=== PATIENT | female | born 2000 | race Caucasian/White ===

== ENCOUNTER 2022-09-03 16:26 | Emergency (ER) | payer OTHER, SELFPAY ==
--- NOTE | 2022-09-03 16:30 | ED.NURSE ---
Patient in exam room made safe with alterations and camera monitor for saftey.
[2022-09-03 16:33] VITALS: BP 131/87; PULSE 78; RESP 18; TEMP 36.6; O2SAT 97; BMI 27.4
--- NOTE | 2022-09-03 16:38 | ED.GENADULT ---
HPI - General Adult General Time Seen by Provider: 16:38 Date Seen: 09/03/22 Chief complaint: Psychiatric Problem/Disorder Stated complaint: Mental Health,OCD,Stress Time Seen by Provider: 09/03/22 16:33 Source: patient and RN notes reviewed Mode of arrival: ambulatory Limitations: no limitations History of Present Illness HPI narrative: Karmen is a 22-year-old female that is initially loudly crying somewhat yelling before I come in the room to her. She does quiet down and has initially nice conversation with me. She has just been feeling extremely stressed. She was supposed to be in a scat or play at school. It was causing her so much stress that she felt like she wanted to harm herself to get out of this play. She wanted cause physical harm so she would have a reason to not do the play. She does not want to kill herself, she is not suicidal not homicidal. She denies any auditory or visual hallucinations. Her parents were supposed to watch this play via live stream and that was 1 of the stressors. She was also stressed about not following through with the play for the people she was in it with. This all just culminated an undue stress for her. She does have underlying anxiety depression, no prior suicide attempts. Does not sound like there hospitalizations before. She believe she has probable OCD as she has obsessions and compulsions. One of the things she talks about is having to check her phone all the time. 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 She states she moved around a lot as her dad was in the . She hit herself in her right jasso with a rock trying to harm herself. She did this last night. She has some bruising to the leg but states there is no pain with walking. Again, she has no plan for suicide. She denies any illness, has not been sick. Denies any alcohol use, no drug use, no smoking, no chance for . Related Data Previous Rx's Medication Instructions Recorded bupropion HCl 150 mg 24 hr tablet, 150 mg PO QAM #30 tabs 09/03/22 extended release (Wellbutrin XL) escitalopram oxalate 20 mg tablet 20 mg PO DAILY #30 tabs 09/03/22 (Lexapro) Allergies Allergy/AdvReac Type Severity Reaction Status Date / Time No Known Allergies Allergy Unknown Verified 08/07/22 16:37 Review of Systems Status of ROS: Reports: 10 or more systems reviewed and unremarkable except as noted in History and below [facility] Medical History (Updated 09/03/22 @ 21:59 by Danna Carrillo MD) Anxiety Depression Panic attack Surgical History (Updated 08/08/22 @ 10:57 by Martha Clement MD) No history of previous surgery Family History (Updated 08/08/22 @ 10:58 by Martha Clement MD) Maternal Grandfather Liver cancer Paternal Grandfather Pancreatic cancer Depression Uncle Stroke, Onset Age: 45 Social History (Updated 08/08/22 @ 10:59 by Martha Clement MD) Narrative: single, [employer], no kids does not drink alcohol exercises daily- walking, running non-smoker Smoking Status: Never smoker Do you use any of these nicotine containing products: None Second hand tobacco smoke exposure: No How often do you have a drink containing alcohol: never AUDIT-C Alcohol total score: 0 Non-prescribed substance use: denies use Exam Const: Vital Signs, click to edit/add: Vital Signs - 24 hr 09/03/22 16:33 Temperature 97.8 F Pulse Rate [Right Pulse Oximeter] 78 Respiratory Rate 18 Blood Pressure [Ri ght Upper Arm] 131/87 Pulse Oximetry 97 Oxygen Delivery Me thod Room Air Documenting provider has reviewed patient's vital signs: yes Common normals: average body habitus, oriented x3, no limitations, healthy appearing, alert and well nourished General appearance: cooperative, comfortable, well kempt, well developed and in distress (Initially anxious, crying. Is able to settle down and converse with me.) HENMT: Common normals: normocephalic, head/scalp atraumatic and hearing grossly normal bilaterally Head and scalp: normocephalic and atraumatic Eye: Common normals: PERRL, EOMs intact bilaterally, conjunctivae normal and no scleral icterus Conjunctiva: conjunctiva(e) normal Pupil: PERRL Neck & C-Spine: Common normals: full ROM, no lymphadenopathy, supple, no meningeal signs, no JVD and thyroid normal Thyroid: thyroid normal Resp: Common normals: normal respiratory effort, no retractions, no use of accessory muscles and clear to auscultation bilaterally Auscultation: clear to auscultation bilaterally Cardio: Common normals: no JVD, regular rate, regular rhythm, S1 normal heart sound, S2 normal heart sound, no gallops, no clicks and no murmurs Rate: regular rate Rhythm: regular rhythm Heart sounds: S1 normal and S2 normal Extremity: Other: Has some bruising anteriorly down the front of the left leg. Is able to bear weight, gait is normal. No open wounds. Neuro: Common normals: oriented x3 Sensorium/orientation: alert Meningeal signs: no meningeal signs Psych: Common normals: mental status grossly normal, thought process normal, cooperative, denies hallucinations, denies homicidal ideation and denies suicidal ideation Appearance: well kempt Thought process: normal thought process Other: Initially was distress, comes easily. Seems to have understanding into her behaviors, has insight into the fact that some of the obsessions and compulsions that she does are aberrant behavior for her. Course Course Hospital Course: We will employ telehealth services to ensure that we can come up with an appropriate outpatient plan for her. She understands if telehealth would feel that she would need hospitalization, will need to obtain COVID testing, laboratory evaluation and urine. This time it seems that there is significant stressors in her life. I do not have a sense that she will need hospitalization but sometimes telehealth does find out different information, will await their consultation. Reevaluation(s) Reevaluation #1: Touch base with patient, we still have not heard from telehealth. The reported time for her to be interviewed was around 7:30 p.m.. We did call as this time add past. All of their employ has had called in sick for the evening, they do have somebody coming on at 8:30 p.m.. Hopefully she will be 1st in the queue. She does not need anything at this time. Time: 20:01 Reevaluation #2: Felicia from telehealth did call back. She feels this patient is quite paranoid. Her level of paranoia was surprising, talking about fear of people watching her and it is happening every day. She reported to her her that she was not sleeping only eating 1 meal a day. She did not give suicidal intent but nonetheless Felicia was concerned about her mental health. She had not taken her medicines for a month. Mildly did not approach the patient about her concerns of the patient needing hospitalization. I went back and talked to Teresa regarding this. She became quite distressed and despondent. She states she needs to get back to her friends and her therapist at college. She really does not feel she needs hospitalization. We discussed that her mental health is at concern here. She notes that even last year when she was on the medicine she really did not feel her mental health was the best. I reviewed with her that that is all the more reason that she should consider hospitalization. IA am not notably getting that this patient is exhibiting significant paranoia on my discussions with her, she is not endorsing any suicidality or homicidality. Her intent was to try to get out of a play that was causing her significant distress as her parents may discover things. I did subsequently talk to the Josiah on-call at [employer]. He felt that it would be okay for her to return as long as she indeed was not suicidal. They do start finals this next week which would likely put another significantly or if stress onto the student. His request would be that she make an e-mail to her therapist to be seen on Monday, talk to her insurance coordinator as soon as possible as well. He is going to talk to her on the phone now and will let me know if there is anything concerning that comes from his conversation, otherwise, he is comfortable with her coming back to the campus. I did speak with him after he had talked to the patient, talked to the patient as well after her phone call with the josiah on-call. They will make sure that the mental health center/[facility] are aware and get her into her therapist/counselor on Monday. The Josiah's will be checking in on her. Teresa is adamant that she has never been able to conception Zina plan for suicide and does not feel suicidal. She will get a prescription for her medications for 1 month, but she still needs to follow up to get these medicines refilled. She really feels that if we force her to go into the hospital, it would actually make her feel much worse. She states the stressing anxiety of that is even way beyond anything she can imagine at this time. To him supported this position. He does feel that she can come back and is comfortable with that. Thus, Karmen is alhaji for safety with me. She understands if her mental health is worsening that she really needs to return and consider getting help. Time: 21:41 Vital Signs Vital signs: Initial Vital Signs Temperature 97.8 F 09/03/22 16:33 Temperature Source Temporal Artery Scan 09/03/22 16:33 Pulse Rate 78 09/03/22 16:33 Respiratory Rate 18 09/03/22 16:33 Blood Pressure 131/87 09/03/22 16:33 Blood Pressure Mean 101 09/03/22 16:33 Blood Pressure Position Sitting 09/03/22 16:33 Pulse Oximetry 97 09/03/22 16:33 Oxygen Delivery Method 09/03/22 16:33 Vital Signs Temperature 97.8 F 09/03/22 16:33 Pulse Rate 78 09/03/22 16:33 Respiratory Rate 18 09/03/22 16:33 Blood Pressure 131/87 09/03/22 16:33 Pulse Oximetry 97 09/03/22 16:33 Oxygen Delivery Method 09/03/22 16:33 Temperature 97.8 F 09/03/22 16:33 Pulse Rate 78 09/03/22 16:33 Respiratory Rate 18 09/03/22 16:33 Blood Pressure 131/87 09/03/22 16:33 Pulse Oximetry 97 09/03/22 16:33 Oxygen Delivery Method 09/03/22 16:33 Critical Care Time Critical Care Time Critical Care Time: No Discharge Plan Discharge Clinical Impression: Stress disorder, acute, History of anxiety, History of depression Condition: Stable Instructions: Stress (ED), Suicide Prevention (ED) Additional Instructions: Resume your Lexapro and Wellbutrin, need to follow up in clinic for further refills of this before you run out. Please schedule that appointment. Your insurance coordinator should be reaching out to you. You need to send an e-mail to your counselor at college to get back in [place]. If at any point you have decompensation in your mood, feel you need re-evaluation or if any thoughts of suicide, need to seek emergent medical evaluation. Activity Level: Activity as Tolerated Discharge Diet: Regular Prescriptions: New bupropion HCl [Wellbutrin XL] 150 mg tablet extended release 24 hr 150 mg PO QAM Qty: 30 0RF escitalopram oxalate [Lexapro] 20 mg tablet 20 mg PO DAILY Qty: 30 0RF Follow Up/Referrals: Martha Clement MD [Primary Care Provider] - Stand Alone Forms: BR Supply Info Instructions
--- OUTSIDE RECORDS SUMMARY | 2022-09-03 17:43 | XMS_ITS | Continuity of Care Document ---
:2002 Author Organization [facility] Care Team Providers Name Role Phone [facility] Unavailable Unavailable Problems Combined list of problems from Department of Defense and Veterans Affairs facilities. It does not include entries that were removed or entered in error. Problem Status Onset Problem Type Date of Comments Source Date Resolution anxiety disorder Active Condition DoD NOS other specified Inactive Condition DoD viral disease visit for: camp Inactive Condition DoD physical skin: rash [as Sx] Inactive Condition D oD viral syndrome Inactive Condition DoD visit for: well Inactive Condition DoD child visit Observation For Active Condition DoD Suspected Condition visit for: Active Condition DoD examination for sports competition gastroenteritis Active Condition DoD Vomiting Inactive Condition DoD dehydration (Na, Inactive Condition DoD H2O) upper respiratory Inactive Condition Continue DoD infection supportive care and sx tx. visit for: exam Inactive Condition Resolved OM . DoD following treatment visit for: Inactive Condition DoD administrative purpose perirectal abscess Active Condition discusse d DoD anaerobic with mom that streptococcal this is the most likely diagnosis. I told her that a culture would help establish the diagnosis but given her apprehension case treat empirically. She should return to clinic if not better or if fever. It took Karmen a while to calm down from crying but she was fine after the visit ended. Preventive Medicine Inactive Condition DoD New Patient Evaluation Childhood 1-4 Years Need For Inactive Condition DoD Vaccination Against Influenza upper respiratory Inactive Condition She had a n DoD infection acute ear infection in the right ear. We will treat with AMOX(AHLTA) is not allowing us to use the otitis media code for diagnosis. visit for: Inactive Condition Resolved DoD follow-up exam otitis media1)F/u at 6 year well child visit; sooner for concerns otitis media Active Condition DoD Need For Inactive Condition DoD Vaccination Hepatitis A routine history and Inactive Condition Hearing and DoD physical preschool middle ear (3 - 6 yrs) function within normal limits, bilaterally. Medications Combined list of outpatient medications from Department of Defense and Veterans Affairs facilities. Medications provided include 1) outpatient medications from the last 15 months, and 2) patient-reported medications. Medication Details Route Status Patient Prescription Prescription Last Ordering Order Source Instructions Expires Number Dispense Provider Date Date buPROPion buPROPion 150 mg/24 hours (XL) oral tablet, extended r elease Ordered Ambulat 150 mg/24 Start Date: 10/07/21 ory hours (XL) Status: Ordered Pharmac oral y tablet, extended release buPROPion 1 TABLET Oral Active 03/08/2023 [id number] 6 03/09/ Garza HCl XL 150 IN THE 2 2021 [facility] MG ORAL MORNING [place] TB24 ORALLY [place] ONCE A [place] DAY 90 DAYS BUPROPION Active [id number] BIRGITTA 01/23/ Pharmac XL 2 2021 y Data (bupropion Transac HCl), 150 tion MG, TAB ER Service 24H, ORAL, Facilit LUPIN y PHARMACEU, 90 ea. BOTTLE BUPROPION Active [id number] BIRGITTA 10/07/ Pharmac XL 2 2021 y Data (bupropion Transac HCl), 150 tion MG, TAB ER Service 24H, ORAL, Facilit LUPIN y PHARMACEU, 90 ea. BOTTLE escitalopra escitalopram 10 mg oral tablet Ordered Ambulat m 10 mg Start Date: 01/13/21 ory oral tablet Status: Ordered Pharmac y ESCITALOPRA 1 TABLET Oral Active 03/08/2023 [id number] 03/09/ Garza M 20 MG ORALLY 2 2021 [facility] ORAL TAB ONCE A 90 [place] DAYS [place] escitalopra escitalopram 20 mg oral tablet Ordered Ambulat m 20 mg Start Date: 10/10/21 ory oral tablet Status: Ordered Pharmac y ESCITALOPRA Active [id number] BIRGITTA 07/27 5/ Pharmac M OXALATE 1 2020 y Data (ESCITALOPR Transac AM tion OXALATE), Service 10 MG, Facilit TABLET, y ORAL, LUPIN PHARMACEU, 100 ea. BOTTLE ESCITALOPRA Active [id number] BIRGITTA 06/26 2/ Pharmac M OXALATE 1 2020 y Data (ESCITALOPR Transac AM tion OXALATE), Service 10 MG, Facilit TABLET, y ORAL, LUPIN PHARMACEU, 100 ea. BOTTLE ESCITALOPRA Active [id number] BIRGITTA 09/25 6/ Pharmac M OXALATE 2 2021 y Data (ESCITALOPR Transac AM tion OXALATE), Service 20 MG, Facilit TABLET, y ORAL, AUROBINDO PHARM, 100 ea. BOTTLE ESCITALOPRA Active [id number] BIRGITTA 05/ Pharmac M OXALATE 2 2021 y Data (ESCITALOPR Transac AM tion OXALATE), Service 20 MG, Facilit TABLET, y ORAL, LUPIN PHARMACEU, 100 ea. BOTTLE ESCITALOPRA Active [id number] BIRGITTA 12 4/ Pharmac M OXALATE 1 2020 y Data (ESCITALOPR Transac AM tion OXALATE), Service 20 MG, Facilit TABLET, y ORAL, LUPIN PHARMACEU, 100 ea. BOTTLE PFIZER Active [id number] MADSEN, 10/17/ Phar mac COVID-19 2 2021 y Data VACCINE Transac (EUA) tion (COVID-19 Service vaccine, Facilit mRNA, y [id number], LNP-S (Pfizer)/PF ), 30 MCG/0.3, VIAL, INTRAMUSC, PFIZER MANUFACT, 1.8 ml VIAL Allergies, Adverse Reactions, Alerts Combined list of allergies from Department of Defense and Veterans Affairs facilities. It does not include entries that were removed or entered in error. Substance Category Reaction Severity Reaction Status Date Comments S ource type Reported NO OUTPUT Drug Drug active Reyn olds FOR NCID allergy allergy 8 [facility] [id number] [place], [place] Immunizations Combined list of available immunizations from the Department of Defense and Veterans Affairs facilities. Immunization Series Date Administered Site Reaction Lot CVX Drug St atus Comments Source Given By Number Code General Labor COVID-19, 10/15/ CALE, Pfizer Not COVID-1 , DoD mRNA, LNP-S, 2021 Manufacturing Given mRNA, PF, 30 [place] LNP-S, mcg/0.3 mL (PFR) PF, 30 dose mcg/0.3 mL dose Human 04/08/ Left [id number] Merck & complet Human P apillomavirus 9-valent vaccine Ambulat Papillomaviru 2020 Arm [employer] ed 04/08/20 ory s 9-valent Given Pha rmac vaccine y Human 2 04/08/ MAEVE OLSON [id number] 165 Merck (MSD) comp let Human DoD Papillomaviru 2019 ed Papill tyron s 9-valent virus vaccine 9-valent vaccine meningococcal Right [id number] 114 sanofi complet meningococcal A,C,Y,W- 135 (MCV4P) Ambulat A,C,Y,W-135 2018 Arm pasteur ed 9 ory (MCV4P) Given Pharma c y Human 12/17/ Left [id number] 165 Merck & complet Human P apillomavirus 9-valent vaccine Ambulat Papillomaviru 2019 [employer] ed 12/17/18 ory s 9-valent Given Pha rmac vaccine y Human 1 12/17/ PELELLA, [id number] 165 Merck (MSD) complet Human DoD Papillomaviru 2018 OLIVIER ed Sergei llojohnny s 9-valent virus vaccine 9-valent vaccine meningococcal 2 12/17/ PELELLA, [id number] 114 Sanofi compl et meningoco DoD polysaccharid 2018 RAFAEL Huntley ([facility]) ed ccal e (groups A, polysac ch C, Y and aride W-135) (groups diphtheria A, C, Y toxoid and conjugate W-135) vaccine diphtheri (MCV4P) a toxoid conjugate vaccine (MCV4P) tetanus, Right [id number] 115 GlaxoSmithKli complet tetanus, diphtheria, acellular pertussis Ambulat diphtheria, 2013 Arm ne ed 05/01/14 o ry acellular Given Phar mac pertu is y meningococcal 05/01/ Left [id number] 114 sanofi complet meningococcal A,C,Y,W- 135 (MCV4P) Ambulat A,C,Y,W-135 2013 Arm pasteur ed 05/01/14 ory (MCV4P) Given Pharma c y meningococcal 1 05/01/ FERRO, [id number] 114 Sanofi compl et meningoco DoD polysaccharid 2013 PRINCESS Huntley ([facility]) ed ccal e (groups A, polysac ch C, Y and aride W-135) (groups diphtheria A, C, Y toxoid and conjugate W-135) vaccine diphtheri (MCV4P) a toxoid conjugate vaccine (MCV4P) tetanus 1 05/01/ KASIE, [id number] 115 SmithKline complet t etanus DoD toxoid, 2013 PRINCESS Laird ([facility]) ed toxoid, reduced reduced diphtheria diphtheri toxoid, and a toxoid , acellular and pertu is acellular vaccine, pertussis adsorbed vaccine, adsorbed influenza , TRANSCR 111 complet influ rosa virus vaccine, live Ambulat virus 2007 Whole IBED ed 08/27/08 ory vaccine, live Given Pharmac y influenza 1 Transcribed complet i nfluenza DoD virus 2007 (TRS) ed virus vaccine, vaccine, live, live, attenuated, attenuat e for d, for intranasal intranasa use l use varicella 01/15/ Transcr 21 complet varic ann virus vaccine Ambulat virus vaccine 2006 ibed ed 7 ory Given Pharmac y measles/mumps 01/15/ Transcr 03 complet m easles/mumps/rubella virus vaccine Ambulat /rubella 2006 ibed ed 01/15/07 ory virus vaccine Given Pharmac y poliovirus 01/15/ Transcr 10 complet mari ovirus vaccine, inactivated Ambulat vaccine, 2006 ibed ed 01/15/07 ory inactivated Given Ph armac y DTaP 01/15/ Transcr 20 complet DTaP Amb ulat 2006 ibed ed 01/15/07 ory Given Pharmac y diphtheria, 5 01/15/ Unknown, Transcr 20 Transcribed co mplet diphtheri DoD tetanus 2006 Provider ibed (TRS) ed a, toxoids and tetanus acellular toxoids pertu is and vaccine acellular pertussis vaccine poliovirus 4 01/15/ , Transcr 10 Transcribed com plet polioviru DoD vaccine, 2007 Provider ibed (TRS) ed s inactivated vaccine, inactivat ed measles, 2 01/15/ Unknown, Transcr 03 Transcribed compl et measles, DoD mumps and 2007 Provider ibed (TRS) ed mumps a nd rubella virus rubell a vaccine virus vaccine varicella 2 01/15/ , Transcr 21 Transcribed comp let varicella DoD virus vaccine 2006 Provider ibed (TRS) ed vir us vaccine influenza [id number] Unknown complet inf luenza virus vaccine, whole virus Ambulat virus 2006 Arm ba ed 08/31/06 ory vaccine, Given Pharm ac whole virus y influenza 1 08/31/ SARTHAK SUNG [id number] Other (OTH) complet influenza DoD virus 2006 E ba ed virus vaccine, vaccine, whole virus whole virus Hep A, 02/22/ Left [id number] 31 GlaxoSmithKli complet Hep A, pediatric, unspecified formul Ambulat pediatric, 2005 Arm 99ab ne ed 02/22/06 o ry unspecified Given Ph armac formul y hepatitis A 2 02/22/ SARTHAK, SUNG [id number] 31 SmithKline complet hepatitis DoD vaccine, 2005 E 99ab (SK) ed A pediatric vaccine, dosage, pediatric unspecified dosage, formulation unspecif i ed formulati on Hep A, 08/23/ Left [id number] 31 GlaxoSmithKli complet Hep A, pediatric, unspecified formul Ambulat pediatric, 2004 Arm 3ba ne ed 08/23/05 ory unspecified Given Ph armac formul y hepatitis A 1 08/23/ SARTHAK, SUNG [id number] 31 SmithKline complet hepatitis DoD vaccine, 2004 E 3ba (SK) ed A pediatric vaccine, dosage, pediatric unspecified dosage, formulation unspecif i ed formulati on Hib, 07/31/ Transcr 17 complet Hib, unsp ecified formulation Ambulat unspecified 2002 ibed ed 07/31/03 ory formulation Given Ph armac y DTaP 07/31/ Transcr 20 complet DTaP Amb ulat 2002 ibed ed 07/31/03 ory Given Pharmac y diphtheria, 4 07/31/ Unknown, Transcr 20 Transcribed co mplet diphtheri DoD tetanus 2002 Provider ibed (TRS) ed a, toxoids and tetanus acellular toxoids pertu is and vaccine acellular pertussis vaccine Haemophilus 4 07/31/ Unknown, Transcr 17 Transcribed co mplet Haemophil DoD influenzae 2002 Provider ibed (TRS) ed us type b influenza vaccine, e type b conjugate vaccine, unspecified conjugat e formulation unspecif i ed formulati on measles/mumps 04/28/ Transcr 03 complet m easles/mumps/rubella virus vaccine Ambulat /rubella 2002 ibed ed 04/28/03 ory virus vaccine Given Pharmac y poliovirus 04/28/ Transcr 10 complet mari ovirus vaccine, inactivated Ambulat vaccine, 2002 ibed ed 04/28/03 ory inactivated Given Ph armac y varicella 04/28/ Transcr 21 complet varic ann virus vaccine Ambulat virus vaccine 2002 ibed ed 04/28/03 ory Given Pharmac y varicella 1 04/28/ Unknown, Transcr 21 Transcribed comp let varicella DoD virus vaccine 2002 Provider ibed (TRS) ed vir us vaccine poliovirus 3 Unknown, Transcr 10 Transcribed com plet polioviru DoD vaccine, 2002 Provider ibed (TRS) ed s inactivated vaccine, inactivat ed measles, 1 04/28/ Unknown, Transcr 03 Transcribed compl et measles, DoD mumps and 2003 Provider ibed (TRS) ed mumps a nd rubella virus rubell a vaccine virus vaccine Hib, 10/30/ Transcr 17 complet Hib, unsp ecified formulation Ambulat unspecified 2002 ibed ed 02 o ry formulation Given Ph armac y hepatitis B 10/30/ Transcr 45 complet hep atitis B vaccine, unspecified formul Ambulat vaccine, 2002 ibed ed 02 ory unspecified Given Ph armac formul y DTaP 10/30/ Transcr 20 complet DTaP Amb ulat 2002 ibed ed 02 ory Given Pharmac y diphtheria, 3 Unknown, Transcr 20 Transcribed co mplet diphtheri DoD tetanus 2002 Provider ibed (TRS) ed a, toxoids and tetanus acellular toxoids pertu is and vaccine acellular pertussis vaccine hepatitis B 3 10/30/ Unknown, Transcr 45 Transcribed co mplet hepatitis DoD vaccine, 2002 Provider ibed (TRS) ed B unspecified vaccine, formulation unspecif i ed formulati on Haemophilus 3 Unknown, Transcr 17 Transcribed co mplet Haemophil DoD influenzae 2002 Provider ibed (TRS) ed us type b influenza vaccine, e type b conjugate vaccine, unspecified conjugat e formulation unspecif i ed formulati on poliovirus 08/28/ Transcr 10 complet mari ovirus vaccine, inactivated Ambulat vaccine, 2001 ibed ed 02 ory inactivated Given Ph armac y Hib, 08/28/ Transcr 17 complet Hib, unsp ecified formulation Ambulat unspecified 2001 ibed ed 02 ory formulation Given Ph armac y DTaP 08/28/ Transcr 20 complet DTaP Amb ulat 2001 ibed ed 02 ory Given Pharmac y diphtheria, 2 Unknown, Transcr 20 Transcribed co mplet diphtheri DoD tetanus 2001 Provider ibed (TRS) ed a, toxoids and tetanus acellular toxoids pertu is and vaccine acellular pertussis vaccine Haemophilus 2 08/28/ Unknown, Transcr 17 Transcribed co mplet Haemophil DoD influenzae 2001 Provider ibed (TRS) ed us type b influenza vaccine, e type b conjugate vaccine, unspecified conjugat e formulation unspecif i ed formulati on poliovirus 2 , Transcr 10 Transcribed com plet polioviru DoD vaccine, 2001 Provider ibed (TRS) ed s inactivated vaccine, inactivat ed poliovirus 06/20/ Transcr 10 complet mari ovirus vaccine, inactivated Ambulat vaccine, 2001 ibed ed 02 ory inactivated Given Ph armac y Hib, 06/20/ Transcr 17 complet Hib, unsp ecified formulation Ambulat unspecified 2001 ibed ed 02 ory formulation Given Ph armac y hepatitis B 06/20/ Transcr 45 complet hep atitis B vaccine, unspecified formul Ambulat vaccine, 2001 ibed ed 02 ory unspecified Given Ph armac formul y DTaP 06/20/ Transcr 20 complet DTaP Amb ulat 2001 ibed ed 02 ory Given Pharmac y diphtheria, 1 Unknown, Transcr 20 Transcribed co mplet diphtheri DoD tetanus 2001 Provider ibed (TRS) ed a, toxoids and tetanus acellular toxoids pertu is and vaccine acellular pertussis vaccine hepatitis B 2 Unknown, Transcr 45 Transcribed co mplet hepatitis DoD vaccine, 2001 Provider ibed (TRS) ed B unspecified vaccine, formulation unspecif i ed formulati on Haemophilus 1 Unknown, Transcr 17 Transcribed co mplet Haemophil DoD influenzae 2001 Provider ibed (TRS) ed us type b influenza vaccine, e type b conjugate vaccine, unspecified conjugat e formulation unspecif i ed formulati on poliovirus 1 Unknown, Transcr 10 Transcribed com plet polioviru DoD vaccine, 2001 Provider ibed (TRS) ed s inactivated vaccine, inactivat ed hepatitis B 04/28/ Transcr 45 complet hep atitis B vaccine, unspecified formul Ambulat vaccine, 2001 ibed ed 02 ory unspecified Given Ph armac formul y hepatitis B 1 08/04/ Unknown, Transcr 45 Transcribed co mplet hepatitis DoD vaccine, 2002 Provider ibed (TRS) ed B unspecified vaccine, formulation unspecif i ed formulati on Vital Signs Combined list of inpatient and outpatient Vital Signs from Department of Defense and Veterans Affairs, ranging from 12 months to all on record, depending upon the facility. Vital Sign Value Date Comments Source No data available for this section Ambulatory Pharmacy Encounters Combined list of: 1) Encounters from Department of Veterans Affairs facilities going back up to the last 18 months. 2) Encounters from the Department of Defense facilities going back up to 280 months. Location Location Encounter Encounter Reason Attending ADM DC Stat us Disposition Source Details Type Number For Provider Date Date Visit OUTPATIENT [id number] f/u TRAE, 01/18 Released w/o [facility] ALEC L Limitations [place] [facility] OUTPATIENT [id number] immun-h KASIE, 08/23 Releas ed w/o Zaire av#1 BLANCHI Limitations [facility] [place] OUTPATIENT [id number] [facility] DONATO, 08/24 Released w/o Zaire physica MONSE I Limitations s [facility] l [employer](Fam [place] OUTPATIENT [id number] immun KASIE, 02/22 Released w/o Zaire hep a BLANCHI Limitations s [facility] #[address] D[facility] [employer] OUTPATIENT [id number] EAR SAMMY, 03/23 Released w/o Zaire PAIN. AUSTIN L Limitations s [facility] [place] OUTPATIENT [id number] Mickey GRACIA, 04/17 Release d w/o Zaire sure MIKE T Limitations [facility] [place] gone[place] at[place] OUTPATIENT [id number] EAR KATELYNN, 08/29 Relea sed w/o Zaire CHECK JAVAN A Limitations s [facility] [employer] [place] OUTPATIENT [id number] immun-f KASIE, 08/31 Relea sed w/o Zaire alberta BLANCHIE /2005 Limitations s [facility] D. [employer] OUTPATIENT [id number] DAY SARA, 01/15 Released w/o REBA Phillips [facility] [place] Limitations Anto nio PHYSICA [place] [address](P ed Social Work [facility]) OUTPATIENT [id number] acute RIVERASANT 02/23 Relea sed w/o REBA Phillips anal IAGO Limitations Dave delatorre,da GAURANG [place] [address](P ed Social Work [facility]) TELE [id number] needs RIVERASANT 03/06 REBA S an CONSULT referal Dave to GAURANG Nealr audiolo y gy Treatme [place] [address](P [phone] ed .[phone] Social Work [facility]) OUTPATIENT [id number] r/o ETIENNE, 04/12 Release d w/o REBA Phillips hearing UVALDO S Limitations Reagan io [place] [address](A udiolog y [facility]) TELE [id number] SAPAL ENG, MARK 06/04 REBA S an CONSULT [place] [address](P ed Social Work [facility]) OUTPATIENT [id number] f/u for ENG, MARK 06/22 Rel eased w/o REBA Phillips ear L Limitations Dave infecti [place] [address](P ed Social Work [facility]) OUTPATIENT [id number] FEVERS/ ENG, MARK 12/05 Rel eased w/o REBA Phillips EAR L Limitations Dave ACHES/S Militar [place] [address](P ed Social Work [facility]) OUTPATIENT [id number] vomitti RIVERASANT 05/29 Rel eased w/o REBA Phillips ng/feve IAGO, Limitations Cruz o r...BAM GAURANG Nealr C Peds [place] 1 [place] [address](P ed Social Work [facility]) OUTPATIENT [id number] Flu PRAUNER, 08/29 Release d w/o REBA Phillips Fair 03 Limitations Reagan io Dec MOY Militar [address] [place] [address](P ed Social Work [facility]) OUTPATIENT [id number] vomitin SNELL, 04/01 Released w/o REBA Phillips g/diarr MAUREEN Limitations An fiordaliza hea Y Militar comes&[place] [address](P ed Social Work [facility]) OUTPATIENT [id number] dann MCKEON, 07/10 Rel eased w/o Zaire INGRAM D Limitations s [facility] [place]Fam [place] OUTPATIENT [id number] ANDERSON, 11/20 Released w/o Nolan CASE J Limitations A[facility], [place](ER) OUTPATIENT [id number] 7Y/O JUMPA, 01/28 Released w/o Ft CYS CHIARA C Limitations Pj PHYSICA (Po L [facility] EXAM//0 H M04A 18524 [facility] One) OUTPATIENT [id number] 10YO/Spo DEDEN, 02/02 Release d w/o Ft rts SUGEY S Limitations Pj pe//5Ma (Po y11 [facility]AM H M04A [facility] One) OUTPATIENT [id number] Persist DEDEN, 11/21 Release d w/o Ft ent SUGEY S Limitations Pj fever (Po at/abov [facility]AM e 100 H M04A [facility] One) TELE [id number] nandini CLARK, 02/14 Released to F t CONSULT MIRELLA Self Care Pj ([employer] [facility]Ro binaon T-Con) OUTPATIENT [id number] PE///CY SAMM, 03/22 Release d w/o Ft S MOY W Limitations Pj ([employer] [facility]AM H M04D [facility] Fou) OUTPATIENT [id number] cough GLADWELL, 09/04 Releas ed w/o Zaire LUDA L Limitations s [facility] [employer] M01B Integr) OUTPATIENT [id number] anxiety GLADWELL, 09/27 Rele ased w/o Zaire /adhd LUDA L Limitations s [facility] concern [place] M01B Integr[place] OUTPATIENT [id number] Abraham FERRO, 05/01 Release d w/o Zaire Entered BLANCHI Limitations s A CH by: Venkata Marino CYNTHIA [place]([facility] Y 07 M01D Apr Respect 2013 ) 0959 ------- ------- ------- ------- -- Routine TELE [id number] Notes OLSON, 05/08 Zaire CONSULT Entered s ACH by: Edgar Garcias ASSANDR [place]([facility] A R 14 M01B Apr) 2013 1003 ------- ------- ------- ------- -- referra l concern TELE [id number] Notes WHITNEY, 05/13 Zaire CONSULT Entered s ACH by: De Oliveira NAKITA [place]([facility] S 19 M01B Apr) 2013 0856 ------- ------- ------- ------- -- Pt need ref OUTPATIENT [id number] Located Within [facility] LYNDON 06/24 Rel eased w/o Zaire ine EN, Limitations s [facility] [place]Op[place] Hyperte halm[facility] nsion gy Clinic) OUTPATIENT [id number] fever,c GLADWELL, 09/24 Rele ased w/o Zaire ough LUDA L /2013 Limitations s [facility] [employer] M01B Integr) OUTPATIENT [id number] cys GLADWELL, 01/05 Releas ed w/o Zaire physica LUDA L /2014 Limitations s [facility] l [place] M01B Integr) OUTPATIENT [id number] Fever GLADWELL, 02/06 Releas ed w/o Zaire LUDA L /2014 Limitations s [facility] [employer]([facility] M01B Integr) OUTPATIENT [id number] school/ BRIDGE, 03/04 Releas ed w/o Garza sports/ ROCHELLE L Limitations A[facility] camp [place], [place]([facility] M01A Red Tm) OUTPATIENT [id number] annual TESSMAN, 07/01 Releas ed w/o Greg eye JEROMY M Limitations ACH exam [place], [place](Opto metry Cl WP) OUTPATIENT [id number] Ear GODOROV, 01/26 Release d w/o Garza ache, MARIYA Limitations [facility] possibl [place] on M01A Red Tm) OUTPATIENT [id number] annual JACKLER, 05/25 Releas ed w/o Garza eye SHERRIE Limitations [facility] exam [place], [place](Opto metry Cl WP) OUTPATIENT [id number] IGA KATHERINE, 06/16 Relea sed w/o Garza deficie Limitations [facility] ncy [place](AM[place] M01A Red Tm) OUTPATIENT [id number] Possibl GODOROV, 04/09 Relea sed w/o Garza e UTI MARIYA Limitations [facility] [place](AMH M01A Red Tm) OUTPATIENT [id number] Follow GODOROV, 05/08 05/08 Releas ed w/o Garza up UTI MARIYA Limitations [facility] M01A Red Tm[place] OUTPATIENT [id number] Annual JACKLER, 06/07 Releas ed w/o Garza Eye SHERRIE Limitations [facility] Exam - [place](Opto metry Cl WP) OUTPATIENT [id number] follow- GODOROV, 06/22 06/22 Relea sed w/o Garza up for MARIYA Limitations [facility] urinary [place] M01A Red Tm) OUTPATIENT [id number] urinary GODOROV, 08/21 Relea sed w/o Garza 1 inconti Limitations [facility] nence [place] follow- [place], , [place](AMH would M01A like a Red Tm) referra l OUTPATIENT [id number] poss KATHERINE, 11/09 Relea sed w/o Garza 3 upper Limitations [facility] respirt [place]AM[facility] on M01A Red Tm) OUTPATIENT [id number] pcs- GODOROV, 12/14 Release d w/o Garza 5 it[place] Limitations [facility] [place], [place](AMH M01A Red Tm) TELE [id number] Notes GODOROV, 12/19 Garza CONSULT 9 Entered MARIYA ACH by: Raji PELELLA [place], [place](AMH A 27 M01A Mar Red Tm) 2018 1700 ------- ------- ------- ------- -- Note sent via [employer] CB #[phone] OUTPATIENT [id number] Notes SRINATH, 01/01 Releas ed w/o Greg 3 Entered Limitations ACH by: Raji Olson, S,AJIT ROLAND([facility] Dec M01A 2019 Red Tm) 1021 ------- ------- ------- ------- -- [place] [id number] medicat DARCY, 04/08 Rele ased w/o [place] 1 ion MOY R Limitations s [facility] f.u. [place]([facility] M01B Integr) Lifetime [id number] 11/01 [facility] Pharmac y History [id number] 11/03 11/03 [place] [address] /2021 Facilit y Access Procedures Combined list of: 1) Procedures from [facility] of Veterans Affairs facilities going back up to the last 18 months, not all VA non-surgical procedures are included; 2) All procedures from the Department of Defense facilities. Procedure Procedure Type Code Date Perfomer Comments Sourc e No data available Am bulatory for this section Pha rmacy Influenza Split 08/31 FERRO, [facility] Virus Vaccine 0.5mL /2005 BLANCHIE Dosage D. Intramuscular Immunization Immunization 54802 08/31 FERRO, DoD Administration By Administration By BLANCHIE Injection, One Injection, One D. Vaccine Vaccine Hep A Vac Ped/Adol Hep A Vac 4050002/22 Sisi FERRO oD Dosage (Intramusc Ped/Adol Dosage /2005 BLANCHIE Use) 2 Dose (Intramusc Use) 2 D. Schedule Dose Schedule Immunization Immunization [id number]/22 FERRO, DoD Administration By Administration By BLANCHIE Injection, One Injection, One D. Vaccine Vaccine Immunization Immunization [id number]/23 FERRO, DoD Administration By Administration By BLANCHIE Injection, One Injection, One D. Vaccine Vaccine Hep A Vac Ped/Adol Hep A Vac [id number]/23 Sisi FERRO oD Dosage (Intramusc Ped/Adol Dosage /2004 BLANCHIE Use) 2 Dose (Intramusc Use) 2 D. Schedule Dose Schedule Psychotherapy Psychotherapy 03/11 Do Sisi CAMERON Individual Individual INES C Approximately 60 Approximately 60 Minutes Minutes Psychotherapy Indiv Psychotherapy 02/14 ARUN, [facility] Interactive Approx Indiv Interactive REGINALD M 30 Min W/ Medical Approx 30 Min W/ Eval & Management Medical Eval & Management Psychotherapy Psychotherapy 02/06 Do Sisi CAMERON Interactive Interactive INES C Complexity Complexity Psychotherapy Psychotherapy 02/06 Do NISHA D Individual Individual INES C Approximately 60 Approximately 60 Minutes Minutes Psychotherapy Psychotherapy 01/18 NISHA Do D Individual Individual INES C Approximately 60 Approximately 60 Minutes Minutes Health And Behav A 01/01 SRINATH, Sisi oD e mt Each 15 Min AJIT Initial A e ment Psychotherapy Indiv [facility] 12/[facility] [employer] [facility] Interactive Approx Indiv Interactive REGINALD M 30 Min W/ Medical Approx 30 Min W/ Eval & Management Medical Eval & Management Human Papilloma Human Papilloma 5115212/17 MONICA HPV9; Se kurt #: 1; [facility] Virus Vaccine, Virus Vaccine, MARIYA F .5 mL; IM; Left Nonavalent Nonavalent Arm; Mfg: [employer]; Lot: [id number]; VIS given (Tere: 08/26/2016). Immunization Immunization 7921512/17 MONICA, Alea & [facility] Administration By Administration By MARIYA F veri fied, Injection, One Injection, One allergies & Vaccine Vaccine medications reviewed, no contraindications for vaccine ordered, immunizations administered as ordered, tolerated well, refer to [id number] for [facility] info & expiration date. VIS given. Pt remained in waiting room for 15 minutes after vaccine. No reaction noted. Immunization Immunization 5749112/17 Daisy ANDERSON Administration By Administration By MARIYA Injection, Each Injection, Each Additional Vaccine Additional Vaccine Meningococcal 12/17 MONICA Meningococcal Do D MARIYA F MCV4P; Series # : Diphtheria Toxoid 2; .5 mL; IM ; Conjugate Vaccine Right Arm; M fg: Sanofi Pasteur; Lot: [id number]; VIS given (Tere: 12/24/2015). Psychotherapy For Psychotherapy For 12/10 Daisy CAMERON Crisis Intervention Crisis INES C Each Additional 30 Intervention Each Minutes Additional 30 Minutes Psychotherapy Psychotherapy 46112 12/10 Do Sisi CAMERON Interactive Interactive /2018 INES C Complexity Complexity Psychotherapy Psychotherapy 91366 12/10 Do Sisi CAMERON Individual Individual /2018 NIES C Approximately 60 Approximately 60 Minutes Minutes Psychotherapy Psychotherapy 49930 11/09 Do Sisi CAMERON Individual Individual /2018 INES C Approximately 60 Approximately 60 Minutes Minutes Psychotherapy Psychotherapy 7516510/19 Do Sisi CAMERON Individual Individual /2018 INES C Approximately 60 Approximately 60 Minutes Minutes Psychotherapy Psychotherapy 9043309/26 Do Sisi CAMERON Interactive Interactive /2018 INES C Complexity Complexity Psychotherapy For Psychotherapy For 2261809/26 Daisy CAMERON Crisis Intervention Crisis /2018 INES C First 60 Minutes Intervention First 60 Minutes Psychotherapy Psychotherapy 9830109/14 Do Sisi CAMERON Individual Individual /2017 INES C Approximately 60 Approximately 60 Minutes Minutes Psychotherapy Indiv Psychotherapy 19776 08/13 ARUN, Daisy Interactive Approx Indiv Interactive /2017 REGINALD M 45 Min W/ Medical Approx 45 Min W/ Eval & Management Medical Eval & Management Psychotherapy Psychotherapy 1521008/03 Do Sisi CAMERON Individual Individual /2017 INES C Approximately 60 Approximately 60 Minutes Minutes Psychotherapy For Psychotherapy For 1447707/18 Daisy CAMERON Crisis Intervention Crisis /2017 INES C Each Additional 30 Intervention Each Minutes Additional 30 Minutes Psychotherapy Psychotherapy 5640007/18 Do Sisi CAMERON Individual Individual /2017 INES C Approximately 60 Approximately 60 Minutes Minutes Psychotherapy Psychotherapy 5056106/15 Do Sisi CAMERON Interactive Interactive /2017 INES C Complexity Complexity Psychotherapy Psychotherapy 7626006/15 Do Sisi CAMERON Individual Individual INES C Approximately 60 Approximately 60 Minutes Minutes Ophthalmological Ophthalmological 3359806/07 Daisy PEARSON Prior Patient Start Prior Patient /2017 SHERRIE Laird Comprehensive Care Start Comprehensive Care Determination Of Determination Of 06/07 Daisy PEARSON Refractive State Refractive State /2017 SHERRIE Laird Psychotherapy Psychotherapy 5388806/03 Do Sisi CAMERON Individual Individual /2017 INES C Approximately 60 Approximately 60 Minutes Minutes Psychotherapy Psychotherapy 0822705/07 Do Sisi CAMERON Interactive Interactive /2017 INES C Complexity Complexity Psychotherapy Psychotherapy 7266005/07 Do Sisi CAMERON Individual Individual /2017 INES C Approximately 60 Approximately 60 Minutes Minutes Psychotherapy Indiv Psychotherapy 29394 05/02 ARUNDaisy Rose Interactive Approx Indiv Interactive /2017 REGINALD M 30 Min W/ Medical Approx 30 Min W/ Eval & Management Medical Eval & Management Psychotherapy Psychotherapy 04/30 Do Sisi CAMERON Individual Individual /2017 INES C Approximately 60 Approximately 60 Minutes Minutes Psychotherapy Psychotherapy 04/23 Do Sisi CAMERON Individual Individual /2017 INES C Approximately 60 Approximately 60 Minutes Minutes Psychotherapy Psychotherapy 04/11 Do Sisi CAMERON Interactive Interactive /2017 INES C Complexity Complexity Psychotherapy Psychotherapy 04/11 Do Sisi CAMERON Individual Individual /2017 INES C Approximately 60 Approximately 60 Minutes Minutes Psychotherapy Indiv Psychotherapy 03/13 Daisy DIAS Interactive Approx Indiv Interactive /2017 REGINALD M 45 Min W/ Medical Approx 45 Min W/ Eval & Management Medical Eval & Management Psychotherapy Psychotherapy 03/02 Do Sisi CAMERON Individual Individual /2017 INES C Approximately 60 Approximately 60 Minutes Minutes Psychotherapy Psychotherapy 02/07 Do Sisi CAMERON Interactive Interactive /2017 INES C Complexity Complexity Psychotherapy Psychotherapy 02/07 Do Sisi CAMERON Individual Individual /2017 INES C Approximately 60 Approximately 60 Minutes Minutes Psychotherapy Psychotherapy 01/26 Do Sisi CAMERON Interactive Interactive /2017 INES C Complexity Complexity Psychotherapy Psychotherapy 01/26 Do Sisi CAMERON Individual Individual /2017 INES C Approximately 60 Approximately 60 Minutes Minutes Psychotherapy Indiv Psychotherapy 01/17 Daisy DIAS Interactive Approx Indiv Interactive /2017 REGINALD M 45 Min W/ Medical Approx 45 Min W/ Eval & Management Medical Eval & Management Psychotherapy Indiv Psychotherapy 12/25 Daisy DIAS Interactive Approx Indiv Interactive REGINALD M 30 Min W/ Medical Approx 30 Min W/ Eval & Management Medical Eval & Management Psychotherapy Psychotherapy 12/21 Do Sisi CAMERON Individual Individual /2017 INES C Approximately 60 Approximately 60 Minutes Minutes Psychotherapy Psychotherapy 12/08 Do Sisi CAMERON Interactive Interactive /2017 INES C Complexity Complexity Psychotherapy Psychotherapy 12/08 Do Sisi CAMERON Individual Individual /2017 INES C Approximately 60 Approximately 60 Minutes Minutes Psychotherapy Psychotherapy 11/24 Do Sisi CAMERON Interactive Interactive /2017 INES C Complexity Complexity Psychotherapy Psychotherapy 11/24 Do Sisi CAMERON Individual Individual /2017 INES C Approximately 60 Approximately 60 Minutes Minutes Psychiatric Psychiatric 03271 11/17 ARUN, [facility] Diagnostic Diagnostic /2017 REGINALD Aleman Evaluation With Evaluation With Medical Evaluation Medical And Management Evaluation And Management Psychotherapy Psychotherapy 11/09 Do Sisi CAMERON Individual Individual /2017 INES C Approximately 60 Approximately 60 Minutes Minutes Psychotherapy Psychotherapy 10/20 Do Sisi CAMERON Individual Individual /2017 INES C Approximately 60 Approximately 60 Minutes Minutes Ophthalmological Ophthalmological 41450 05/25 LILI Daisy Prior Patient Start Prior Patient /2016 SHERRIE Laird Comprehensive Care Start [place] [address] 05/25 LILI Daisy Refractive State Refractive State /2016 SHERRIE Laird Scanning Scanning 81322 05/25 LILI Daisy Computerized Computerized /2016 SHERRIE Laird Ophthalmic Ophthalmic Diagnostic Imaging Diagnostic Optic Nerve Imaging Optic Nerve Psychotherapy Psychotherapy 02/08 Do Sisi CAMERON Individual Individual /2016 INES C Approximately 60 Approximately 60 Minutes Minutes Cerumen Removal Cerumen Removal 61280 01/26 GODOROV, Left Ear DoD Left Ear Irrigation Left Ear /2016 MARIYA F Irrigation was Incomplete Irrigation done to remove wax Incomplete from her left ear. Cerumen Removal Cerumen Removal 12581 01/26 Tavon ANDERSON to DoD Left Ear Curette Left Ear Curette /2016 MARIYA F remove moist Incomplete Incomplete cerumen from canal to be able to view TM. After several attempts there was still cerumen blocking my view. PT's Ear was washed and wax was removed with the elephant ear wash. Psychotherapy Psychotherapy 12/13 Do Sisi CAMERON Interactive Interactive /2016 INES C Complexity Complexity Psychotherapy Psychotherapy 12/13 Do Sisi CAMERON Individual Individual /2016 INES C Approximately 60 Approximately 60 Minutes Minutes Psychotherapy Psychotherapy 12/03 Do Sisi CAMERON Individual Individual /2016 INES C Approximately 60 Approximately 60 Minutes Minutes Psychotherapy Psychotherapy 11/14 Do Sisi CAMERON Interactive Interactive /2016 INES C Complexity Complexity Psychotherapy Psychotherapy 11/14 Do Sisi CAMERON Individual Individual /2016 INES C Approximately 60 Approximately 60 Minutes Minutes Psychotherapy Psychotherapy 10/25 Do Sisi CAMERON Interactive Interactive /2016 INES C Complexity Complexity Psychotherapy Psychotherapy 10/25 Do Sisi CAMERON Individual Individual /2016 INES C Approximately 60 Approximately 60 Minutes Minutes Psychotherapy Psychotherapy 09/30 Do Sisi CAMERON Interactive Interactive /2016 INES C Complexity Complexity Psychotherapy 09/30 [facility], [facility] Individual INES C Approximately 60 Minutes Psychotherapy Psychotherapy 94926 09/08 Do Sisi CAMERON Interactive Interactive /2015 INES C Complexity Complexity Psychotherapy 09/08 [facility], [facility] Individual INES C Approximately 60 Minutes Psychotherapy Psychotherapy 47751 08/24 Do Sisi CAMERON Interactive Interactive /2015 INES C Complexity Complexity Psychotherapy 08/24 [facility], [facility] Individual INES C Approximately 60 Minutes Psychotherapy 08/16 [facility], [facility] Individual INES C Approximately 60 Minutes Psychotherapy 07/22 [facility], [facility] Individual INES C Approximately 60 Minutes Psychotherapy 07/17 [facility], [facility] Individual INES C Approximately 60 Minutes Psychiatric Psychiatric 03144 07/08 [facility] Diagnostic Diagnostic /2015 INES C Evaluation Initial Evaluation Initial Scanning Scanning 75638 07/01 [facility] Computerized Computerized JEROMY Aleman Ophthalmic Ophthalmic Diagnostic Imaging Diagnostic Optic Nerve Imaging [place] [address] 07/01 [facility] Refractive State Refractive State /2015 JEROMY Aleman Ophthalmological Ophthalmological 86368 07/01 [facility] New Patient Start New Patient Start JEROMY Aleman [facility] Comprehensive [facility] Corneal Pachymetry 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 C, Y, W-135) BLANCHIE A,C,Y,W-135 Oligosacch D. Diphtheria Conj; Diphtheria Toxoid Series #: 1; .5 Conj Vacc mL; IM; Left Arm; Mfg: Sanofi Pasteur; Lot: [id number]; VIS given (Tere: 07/08/11). Tdap Vaccine Tdap Vaccine 01687 05/01 KASIE Tdap; Series # : 1; BLANCHIE .5 mL; IM; Right D. Arm; Mfg: [employer]; Lot: [id number]; VIS given (Tere: 02/10/13). Immunization Immunization 73819 05/01 FERRO, IM Medication [facility] Administration By Administration By PRINCESS Admi nistration: Injection, One Injection, One D. Patient Vaccine Vaccine Identification verified using Full Name and . Immunization Immunization 14101 05/01 [facility] Administration By Administration By PRINCESS Injection, Each Injection, Each D. Additional Vaccine Additional Vaccine [place] [address] [facility] Visual Acuity, Visual Acuity, MOY W Quantitative, Quantitative, Bilateral Bilateral Non-Physician Phone Non-Physician 59879 02/14 [facility] Call To Phone Call To MIRELLA Mcnair Patient/Provider Patient/Provider Brief (5-10min) Brief (5-10min) [place] [address] 02/[address] [facility] Visual Acuity, Visual Acuity, SUGEY Beckman 20/25-cirr ected Quantitative, Quantitative, left Bilateral Bilateral 20/20-corrected both 20/20-corrected [place] [address] 01/28 [facility] Visual Acuity, Visual Acuity, CHIARA C Quantitative, Quantitative, Bilateral Bilateral Influenza Virus 08/29 [facility] Vaccine Intranasal /2007 MEKA Live Attenuated MOY Immunization Immunization 08310 08/29 [facility] Administration By Administration By MEKA Injection, One Injection, One MOY Vaccine Vaccine IV Infusion For 05/29 [facility] Hydration Each RHINA, Additional Hour GAURANG M Intravenous Intravenous 42431 05/29 [facility] Catheter Placement Catheter /2007 RHINA, Placement GAURANG M Parenteral Fluids 05/29 [facility] D IV Infusion /2007 RHINAJUAN MCDOWELLDA M Pulse Oximetry Pulse Oximetry 19775 12/05 [facility], DoD /2007 MARK L Tympanometry Tympanometry 36492 04/12 ETIENNE, [facility] /2006 UVALDO S Acoustic Reflex 04/12 [facility], [facility] Testing /2006 UVALDO S Audiometry Speech Audiometry Speech 17150 04/12 ETIENNE, [facility] Threshold Threshold /2006 UVALDO S Threshold Audiogram Threshold 94664 04/12 [facility], [facility] (Pure Tone) Audiogram (Pure /2006 UVALDO S Tone) Human Papilloma Human Papilloma 26384 DIYA OLSON; [facility] #: 2; [facility] Virus Vaccine, Virus Vaccine, MAEVE K 0.5 mL; IM ; Left Nonavalent Nonavalent Arm; Mfg: [employer]; Lot: [id number]; VIS given (Tere: 07/24/2019). Immunization Immunization [address] [facility] Administration By Administration By MAEVE K Injection, One Injection, One Vaccine Vaccine INFLUENZA VIRUS 08/29 [facility] VACCINE, TRIVALENT, LIVE (LAIV3), FOR INTRANASAL USE INTRAVENOUS 05/29 [facility] INFUSION, HYDRATION; EACH ADDITIONAL HOUR (LIST SEPARATELY IN ADDITION TO CODE FOR PRIMARY PROCEDURE) NONINVASIVE EAR OR 12/05 D oD PULSE OXIMETRY OXYGEN SATURATION; SINGLE DETERMINATION ACOUSTIC REFLEX 04/12 DoD TESTING, THRESHOLD SCREENING TEST OF 03/22 Do D VISUAL ACUITY, QUANTITATIVE, BILATERAL TELE ASSESS & MGT 02/14 Do D SRV PROV QUAL NONPHYS HLTH CARE PRO TO EST PAT,PARENT,GUARD NOT ORIG REL ASSESS & MGT SRV PROV W/IN PREV 7 DAYS NOR LEAD ASSESS & MGT SRV/PX W/IN NXT 24 HR/SOON APT;5-10 MIN MED DIS SCREENING TEST OF 02/02 Do D VISUAL ACUITY, QUANTITATIVE, BILATERAL SCREENING TEST OF 01/28 Do D VISUAL ACUITY, QUANTITATIVE, BILATERAL HUMAN 04/08 [facility] PAPILLOMAVIRUS VACCINE TYPES 6, 11, 16, 18, 31, 33, 45, 52, 58, NONAVALENT (9VHPV), 2 OR 3 DOSE SCHEDULE, FOR INTRAMUSCULAR USE OPHTHALMIC 06/24 [facility] ULTRASOUND ECHOGRAPHY, DIAGNOSTIC; CORNEAL PACHYMETRY, UNILATERAL OR BILATERAL (DETERMINATION OF CORNEAL THICKNESS) IMMUNIZATION 05/01 DoD ADMINISTRATION (INCLUDES PERCUTANEOUS, INTRADERMAL, SUBCUTANEOUS, OR INTRAMUSCULAR INJECTIONS); EACH ADDITIONAL VACCINE (SINGLE OR COMBINATION VACCINE/TOXOID) IMMUNIZATION 08/31 DoD ADMINISTRATION (INCLUDES PERCUTANEOUS, INTRADERMAL, SUBCUTANEOUS, OR INTRAMUSCULAR INJECTIONS); 1 VACCINE (SINGLE OR COMBINATION VACCINE/TOXOID) IMMUNIZATION 02/22 DoD ADMINISTRATION /2005 (INCLUDES PERCUTANEOUS, INTRADERMAL, SUBCUTANEOUS, OR INTRAMUSCULAR INJECTIONS); 1 VACCINE (SINGLE OR COMBINATION VACCINE/TOXOID) IMMUNIZATION 08/23 [facility] ADMINISTRATION /2004 (INCLUDES PERCUTANEOUS, INTRADERMAL, SUBCUTANEOUS, OR INTRAMUSCULAR INJECTIONS); 1 VACCINE (SINGLE OR COMBINATION VACCINE/TOXOID) BRIEF 03/08 [facility] EMOTIONAL/BEHAVIOR L ASSESSMENT (EG, DEPRESSION INVENTORY, ATTENTION-DEFICIT/H YPERACTIVITY DISORDER [ADHD] SCALE), WITH SCORING AND DOCUMENTATION, PER STANDARDIZED INSTRUMENT PSYCHOTHERAPY, 30 02/14 Do D MINUTES WITH PATIENT WHEN PERFORMED WITH AN EVALUATION AND MANAGEMENT SERVICE (LIST SEPARATELY IN ADDITION TO THE CODE FOR PRIMARY PROCEDURE) BRIEF 02/05 DoD EMOTIONAL/BEHAVIOR L ASSESSMENT (EG, DEPRESSION INVENTORY, ATTENTION-DEFICIT/H YPERACTIVITY DISORDER [ADHD] SCALE), WITH SCORING AND DOCUMENTATION, PER STANDARDIZED INSTRUMENT PSYCHOTHERAPY, 60 01/18 Do D MINUTES WITH PATIENT HEALTH&BEHAV 01/01 DoD ASSESSMENT (EG, HEALTH-FOC CLINICAL INTERVIEW, BEHAVIORAL OBSERVATIONS, PSYCHOPHYSICOLOGICA L MONITOR, HEALTH-ORIENT QUESTIONNAIRES), EA 15 MIN [id number] W THE PATIENT; INIT ASSESSMENT PSYCHOTHERAPY, 30 12/18 Do D MINUTES WITH PATIENT WHEN PERFORMED WITH AN EVALUATION AND MANAGEMENT SERVICE (LIST SEPARATELY IN ADDITION TO THE CODE FOR PRIMARY PROCEDURE) MENINGOCOCCAL 12/17 DoD CONJUGATE VACCINE, SEROGROUPS A, C, W, Y, QUADRIVALENT, DIPHTHERIA TOXOID CARRIER (MENACWY-D) OR [id number] CARRIER (MENACWY-CRM), FOR INTRAMUSCULAR USE INTERACTIVE 12/07 DoD COMPLEXITY ( SEPARATELY IN ADDITION TO THE CODE FOR PRIMARY PROCEDURE) PSYCHOTHERAPY, 60 11/08 Do D MINUTES WITH PATIENT PSYCHOTHERAPY, 60 10/18 Do D MINUTES WITH PATIENT FAMILY 09/24 DoD PSYCHOTHERAPY (CONJOINT PSYCHOTHERAPY) (WITH PATIENT PRESENT), 50 MINUTES PSYCHOTHERAPY, 60 09/12 Do D MINUTES WITH PATIENT PSYCHOTHERAPY, 45 08/13 Do D MINUTES WITH PATIENT WHEN PERFORMED WITH AN EVALUATION AND MANAGEMENT SERVICE (LIST SEPARATELY IN ADDITION TO THE CODE FOR PRIMARY PROCEDURE) PSYCHOTHERAPY, 60 08/03 Do D MINUTES WITH PATIENT PSYCHOTHERAPY, 60 07/16 Do D MINUTES WITH PATIENT INTERACTIVE 06/14 DoD COMPLEXITY ( SEPARATELY IN ADDITION TO THE CODE FOR PRIMARY PROCEDURE) DETERMINATION OF 06/07 DoD REFRACTIVE STATE PSYCHOTHERAPY, 60 05/31 Do D MINUTES WITH PATIENT BRIEF 05/07 DoD EMOTIONAL/BEHAVIOR L ASSESSMENT (EG, DEPRESSION INVENTORY, ATTENTION-DEFICIT/H YPERACTIVITY DISORDER [ADHD] SCALE), WITH SCORING AND DOCUMENTATION, PER STANDARDIZED INSTRUMENT PSYCHOTHERAPY, 30 05/02 Do D MINUTES WITH PATIENT WHEN PERFORMED WITH AN EVALUATION AND MANAGEMENT SERVICE (LIST SEPARATELY IN ADDITION TO THE CODE FOR PRIMARY PROCEDURE) PSYCHOTHERAPY, 60 04/30 Do D MINUTES WITH PATIENT PSYCHOTHERAPY, 60 04/23 Do D MINUTES WITH PATIENT INTERACTIVE 04/09 DoD COMPLEXITY (LIST SEPARATELY IN ADDITION TO THE CODE FOR PRIMARY PROCEDURE) PSYCHOTHERAPY, 45 03/13 Do D MINUTES WITH PATIENT WHEN PERFORMED WITH AN EVALUATION AND MANAGEMENT SERVICE (LIST SEPARATELY IN ADDITION TO THE CODE FOR PRIMARY PROCEDURE) BRIEF 03/01 DoD EMOTIONAL/BEHAVIORA L ASSESSMENT (EG, DEPRESSION INVENTORY, ATTENTION-DEFICIT/H YPERACTIVITY DISORDER [ADHD] SCALE), WITH SCORING AND DOCUMENTATION, PER STANDARDIZED INSTRUMENT BRIEF 02/06 DoD EMOTIONAL/BEHAVIORA L ASSESSMENT (EG, DEPRESSION INVENTORY, ATTENTION-DEFICIT/H YPERACTIVITY DISORDER [ADHD] SCALE), WITH SCORING AND DOCUMENTATION, PER STANDARDIZED INSTRUMENT INTERACTIVE 01/24 DoD COMPLEXITY (LIST SEPARATELY IN ADDITION TO THE CODE FOR PRIMARY PROCEDURE) PSYCHOTHERAPY, 30 01/16 Do D MINUTES WITH PATIENT WHEN PERFORMED WITH AN EVALUATION AND MANAGEMENT SERVICE (LIST SEPARATELY IN ADDITION TO THE CODE FOR PRIMARY PROCEDURE) PSYCHOTHERAPY, 30 12/25 Do D MINUTES WITH PATIENT WHEN PERFORMED WITH AN EVALUATION AND MANAGEMENT SERVICE (LIST SEPARATELY IN ADDITION TO THE CODE FOR PRIMARY PROCEDURE) PSYCHOTHERAPY, 60 12/20 Do D MINUTES WITH PATIENT BRIEF 12/07 DoD EMOTIONAL/BEHAVIORA L ASSESSMENT (EG, DEPRESSION INVENTORY, ATTENTION-DEFICIT/H YPERACTIVITY DISORDER [ADHD] SCALE), WITH SCORING AND DOCUMENTATION, PER STANDARDIZED INSTRUMENT FAMILY 11/23 DoD PSYCHOTHERAPY (CONJOINT PSYCHOTHERAPY) (WITH PATIENT PRESENT), 50 MINUTES PSYCHIATRIC 11/14 DoD DIAGNOSTIC EVALUATION WITH MEDICAL SERVICES PSYCHOTHERAPY, 60 11/09 Do D MINUTES WITH PATIENT PSYCHOTHERAPY, 60 10/20 Do D MINUTES WITH PATIENT DETERMINATION OF 05/25 DoD REFRACTIVE STATE BRIEF 02/07 DoD EMOTIONAL/BEHAVIORA L ASSESSMENT (EG, DEPRESSION INVENTORY, ATTENTION-DEFICIT/H YPERACTIVITY DISORDER [ADHD] SCALE), WITH SCORING AND DOCUMENTATION, PER STANDARDIZED INSTRUMENT REMOVAL IMPACTED 01/26 DoD CERUMEN USING IRRIGATION/LAVAGE, UNILATERAL BRIEF 12/13 DoD EMOTIONAL/BEHAVIORA L ASSESSMENT (EG, DEPRESSION INVENTORY, ATTENTION-DEFICIT/H YPERACTIVITY DISORDER [ADHD] SCALE), WITH SCORING AND DOCUMENTATION, PER STANDARDIZED INSTRUMENT PSYCHOTHERAPY, 60 12/01 Do D MINUTES WITH PATIENT INTERACTIVE 11/11 DoD COMPLEXITY ( SEPARATELY IN ADDITION TO THE CODE FOR PRIMARY PROCEDURE) BRIEF 10/24 DoD EMOTIONAL/BEHAVIORA L ASSESSMENT (EG, DEPRESSION INVENTORY, ATTENTION-DEFICIT/H YPERACTIVITY DISORDER [ADHD] SCALE), WITH SCORING AND DOCUMENTATION, PER STANDARDIZED INSTRUMENT BRIEF 09/29 DoD EMOTIONAL/BEHAVIORA L ASSESSMENT (EG, DEPRESSION INVENTORY, ATTENTION-DEFICIT/H YPERACTIVITY DISORDER [ADHD] SCALE), WITH SCORING AND DOCUMENTATION, PER STANDARDIZED INSTRUMENT INTERACTIVE 09/07 DoD COMPLEXITY ( SEPARATELY IN ADDITION TO THE CODE FOR PRIMARY PROCEDURE) PSYCHOTHERAPY, 60 08/24 Do D MINUTES PATIENT BRIEF 08/16 DoD EMOTIONAL/BEHAVIORA L ASSESSMENT (EG, DEPRESSION INVENTORY, ATTENTION-DEFICIT/H YPERACTIVITY DISORDER [ADHD] SCALE), WITH SCORING AND DOCUMENTATION, PER STANDARDIZED INSTRUMENT PSYCHOTHERAPY, 60 07/22 Do D MINUTES PATIENT BRIEF 07/15 DoD EMOTIONAL/BEHAVIOR L ASSESSMENT (EG, DEPRESSION INVENTORY, ATTENTION-DEFICIT/H YPERACTIVITY DISORDER [ADHD] SCALE), WITH SCORING AND DOCUMENTATION, PER STANDARDIZED INSTRUMENT PSYCHIATRIC 07/07 [facility] DIAGNOSTIC EVALUATION DETERMINATION OF 07/01 DoD REFRACTIVE STATE Social History Combined list of available smoking, tobacco, and other social history from [facility]. Social History Type Response Date Comment Source This section is an empty social history section. [facility]D Assessment and Plan Combined list of future care activities from [facility] facilities (e.g., assessment and plan notes, appointments, orders, and referrals). Additional future care activities may be listed in the Plan of Care section. Result Assessment and Plan Date Source Assessment and Plan No data available for this 09/03/2022 [facility] Functional Status Combined list of recent functional and cognitive assessments recorded at [facility] Functional Benson Measurement (FIM) Scale: 1 = Total Assistance (Subject = 0% +), 2 = Maximal Assistance (Subject = 25% +), 3 = Moderate Assistance (Subject = 50% +), 4 = Mi nimal Assistance (Subject = 75% +), 5 = Supervision, 6 = Modified Benson (Device), 7 = Complete Benson (Timely, Safely). Assessment Source Assessment Type Assessment Assessment Assessmen t Date/Time Skill Score Details No data available for this section
--- NOTE | 2022-09-03 18:30 | ED.NURSE ---
Meal was ordered and patient ate about 75%.
--- NOTE | 2022-09-03 22:25 | ED.NURSE ---
Patient picked up by campus security. Patient assisted to call mom from hospital phone prior to discharge.
== END 2022-09-03 22:28 | disposition home or self-care (01) ==
PROVIDERS: Emergency Provider Family Medicine; PCP Family Medicine
DX: F43.0 Acute stress reaction (principal); F32.A Depression, unspecified
CPT/HCPCS: 99283; 99284

== ENCOUNTER 2023-10-18 13:58 | Outpatient (CLI) | payer OTHER, SELFPAY ==
--- OUTSIDE RECORDS SUMMARY | 2023-10-19 06:20 | XMS_ITS | Continuity of Care Document ---
Author Name [facility] Organization [facility] Care Team Providers Care Financial Planning Advisor Name Role Phone [facility] Unavailable Unavailable Problems [...] she was fine after the visit ended. [facility] Preventive Medicine New Patient Evaluation Childhood 1-4 Years Inactive Condition DoD Need For Vaccination Against Influenza Inactive Condition [facility] upper respiratory infection acute Inactive Condition She had an e ar infection in the right ear. We will treat with AMOX(AHLTA) is not allowing us to use the otitis media code for diagnosis. DoD visit for: follow-up exam Inactive Condition Resolved otit is media1)F/u at 6 year well child visit; sooner for concerns DoD otitis media Active Condition [facility] Need For Vaccination Hepatitis A Inactive Condition [facility] routine history and physical preschool (3 - [...] TAB Finish the prescrip tion. Active 10/25/2023 [id number] 3 2022 [facility] amoxicillin 875 mg tablet See Rx Instruct [...] Chlorhexidi ne Gluconate, 0.12%, Mouthwash Active 10/25/2023 [id number] 3 2022 [facility] chlorhexidi ne oral rinse 0.12% liquid [473mL] [...] Reported Comments Source NO OUTPUT FOR NCID [id number] Drug allergy (disorder) active 12/06/2007 [facility] [place] [place] Immunizations Combined list of available immunizations from the Department of Defense and Veterans Affairs facilities. Immunization Series Date Given Administered By Site Reaction Lot Number CVX Code Drug Warehouse Sorter Status Comments Source COVID-19, mRNA, LNP-S, PF, 30 mcg/0.3 mL dose 2021 [facility] [place] (PFR) Not Given COVID-19, mRNA, LNP-S, PF, 30 mcg/0.3 mL dose DoD Human Papillomaviru s 9-valent vaccine 2019 Left Arm [id number] 165 [employer] complet ed Human Papilloma virus 9-valent vaccine 04/08/20 Given Ambulat ory Pharmac y Human Papillomaviru s 9-valent vaccine 2 2019 MAEVE OLSON [id number] 165 Merck (MSD) compl et ed Human Papilloma virus 9-valent vaccine DoD meningococcal A,C,Y,W-135 (MCV4P) 2018 Right Arm [id number] 114 sanofi pasteur complet ed meningoco ccal A,C,Y,W-1 35 (MCV4P) 12/17/18 Given Ambulat ory Pharmac y Human Papillomaviru s 9-valent vaccine 2018 Left Arm [id number] 165 [employer]ck [employer] complet ed Human Papilloma virus 9-valent vaccine 12/17/18 Given Ambulat ory Pharmac y meningococcal polysaccharid e (groups A, C, Y and W-135) diphtheria toxoid conjugate vaccine (MCV4P) 2 2018 RAFAEL DESHPANDE [id number] 114 Sanofi Pasteur (PMC) complet ed meningoco ccal polysacch aride (groups A, C, Y and W-135) diphtheri a toxoid conjugate vaccine (MCV4P) DoD Human Papillomaviru s 9-valent vaccine 1 2018 RAFAEL DESHPANDE [id number] 165 Merck (MSD) complet ed Human Papilloma virus 9-valent vaccine DoD tetanus, diphtheria, acellular pertu is 2013 Right Arm [id number] 115 [facility] complet ed tetanus, diphtheri a, acellular pertussis 05/01/14 Given Ambulat ory Pharmac y meningococcal A,C,Y,W-135 (MCV4P) 2013 Left Arm [id number] 114 sanofi pasteur complet ed meningoco ccal A,C,Y,W-1 35 (MCV4P) 05/01/14 Given Ambulat ory Pharmac y meningococcal polysaccharid e (groups A, C, Y and W-135) diphtheria toxoid conjugate vaccine (MCV4P) 1 2013 PRINCESS FERRO [id number] 114 Sanofi Pasteur (PMC) complet ed meningoco ccal polysacch aride (groups A, C, Y and W-135) diphtheri a toxoid conjugate vaccine (MCV4P) DoD tetanus toxoid, reduced diphtheria toxoid, and acellular pertu is vaccine, adsorbed 1 2013 PRINCESS FERRO [id number] [address] [place] [address] (SKB) complet ed tetanus toxoid, reduced diphtheri [...] virus vaccine, whole virus 2005 Left Arm [id number] 16 Unknown complet ed influenza virus vaccine, whole virus 08/31/06 Given Ambulat ory Pharmac y influenza virus vaccine, whole virus 1 2005 SUNG [place] LEÓN [id number] 16 Other (OTH) complet ed influenza [...] ADM Date DC Date Status Dis[place] Source [facility] OUTPATIENT [id number] f/u ALEC LARKIN 01/18 Released w/o Limitations [facility] [place] [place] [place] [place]) OUTPATIENT [id number] immun-h av#1 PRINCESS FERRO 08/23 Released w/o Limitations [facility] [place] [facility] [place]) OUTPAT[place] [id number] daycare MONSE Orantes I 08/24 Released w/o Limitations [facility] [place] [facility] [place] OUT[place] [id number] immun hep a #2 PRINCESS FERRO 02/22 Released w/o Limitations [facility] [place] [facility] [place]) OUTPATIENT [id number] EAR PAIN. AUSTIN CHRISTIANSON 03/23 Released w/o Limitations [facility] [place] [facility] [place]) OUTPATIENT [id number] Make sure ear infecti on gone. IMKE GRACIA 04/17 Released w/o Limitations [facility] [place] [facility] [place]) OUTPATIENT [id number] EAR CHECK ALIEJAVAN LOZA Ezequiel 08/29 Released w/o Limitations [facility] [place] [facility] [place]) OUTPATIENT [id number] immun-f PRINCESS Feldman 08/31 Released w/o Limitations [facility] [place] [address](Ped Social Work [facility]) OUTPATIENT [id number] [facility] [place] MARIE V 01/15 Released w/o Limitations [facility] [place] [address](P ed Social Work [facility]) [place] [address]([facility] Social Work [facility]) OUTPATIENT [id number] acute anal rash,da d accepts GAURANG RAMON 02/23 Released w/o Limitations [facility] [place] [address](P ed Social Work [facility]) [place] [address]([facility] Social Work [facility]) TELE CONSULT [id number] needs referal to audiolo gy please call dad or mom GAURANG RAMON 03/06 [facility] [place] [address](P ed Social Work [facility]) [place] [address](Aud iology [facility]) OUTPATIENT [id number] r/o hearing deficit ETIENNE, UVALDO S 04/12 Released w/o Limitations [facility] [place] [address](A udiolog y [facility]) [place] [address](Ped Social Work [facility]) TELE CONSULT [id number] MARK ROGERS 06/04 [facility] [place] [address](P ed Social Work [facility]) [place] [address](Ped Social Work [facility]) OUTPATIENT [id number] f/u for ear infecti on MARK ARMENTA L 06/22 Released w/o Limitations [facility] [place] [address](P ed Social Work [facility]) [facility] [place] [place] [address]([facility] Social Work [facility]) OUTPATIENT [id number] FEVERS/ EAR ACHES/S ORE THROAT MARK ARMENTA L 12/05 Released w/o Limitations [facility] [place] [address](P ed Social Work [facility]) [facility] [place] [place] [address]([facility] Social Work [facility]) OUTPATIENT [id number] vomitti ng/feve r...[facility] Peds 1 [place] GAURANG QUEZADA 05/29 Released w/o Limitations [facility] [place] [address](P ed Social Work [facility]) [place] [address]([facility] Social Work [facility]) OUTPATIENT [id number] Flu Fair 27 Aug 2008 MEKA CRUZ 08/29 Released w/o Limitations [facility] [place] [address](P ed Social Work [facility]) [place] [address]([facility] Social Work [facility]) OUTPATIENT [id number] vomitin g/diarr hea comes&g oes MAUREEN SNELL 04/01 [facility] Limitations [facility] [place] [address](P ed Social Work [facility]) [facility] [place]) OUTPATIENT [id number] physica l NATALY MCKEON 07/10 Released w/o Limitations [facility] [facility] [place]) OUTPATIENT [id number] EVIE ANDERSON 11/20 Released w/o Limitations [facility] [place]([facility]) [facility] ([facility])(AMH M04A RHC One) OUTPATIENT [id number] 9Y/O CYS PHYSICA L EXAM//0 97789 CHIARA ESPINOZA 01/28 Released w/o Limitations [facility] ([facility]AM H M04A RH One) [facility]H M04A RHC One) OUTPATIENT [id number] 10YO/Spo rts pe//5Ma y11 SUGEY STUART S 02/02 Released w/o Limitations [facility] ([facility])(AM H M04A RHC One) [facility])(AMH M04A RHC One) OUTPATIENT [id number] Persist ent fever at/abov e 100 SUGEY STUART S 11/21 Released w/o Limitations [facility] ([facility])(AM H M04A RHC One) [facility] ([facility]Abdirizak turpinon T-Con) TELE CONSULT [id number] MIRELLA Mobley 02/14 Released to Self Care [facility] ([facility])(Sima rouse T-Con) [facility] ([facility])(AMH M04D RHC Fou) OUTPATIENT [id number] PE///CY S MOY QUIJANO 03/22 Released w/o Limitations [facility] ([facility])(AM H M04D RHC Fou) [facility] [place] OUTPATIENT [id number] cough LUDA MENESES 09/04 Released w/o Limitations [facility] [place] [facility] [place] OUT[place] [id number] anxiety /adhd concern LUDA MENESES 09/27 Released w/o Limitations [facility] [place] [facility] [place] OUTPAT[place] [id number] Notes Entered by: CARLEE SANTIAGO 01 May 2014 0959 ------- ------- ------- ------- -- Routine PRINCESS FERRO 05/01 Released w/o Limitations [facility] [place] [facility] [place] TELE CONSULT [id number] Notes Entered by: Edgar VILLASENOR 08 May 2014 1003 ------- ------- ------- ------- -- referra MAEVE Ramos 05/08 [facility] [place] [facility] [place] TELE CONSULT [id number] Notes Entered by: DIMPLE LEONE 13 May 2014 0856 ------- ------- ------- ------- -- Pt need ref MAEVE OLSON 05/13 [facility] [place] [facility] [place]) [place] [id number] 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 EVIE STEVENSON 06/24 Released w/o Limitations [facility] [place] [facility] [place] OUT[place] [id number] fever,c ough LUDA MENESES L 09/24 Released w/o Limitations [facility] [place] [facility] [place] OUT[place]IENT [id number] cys physica l concern s LUDA MENESES L 01/05 Released w/o Limitations [facility] [place] [facility] [place] OUT[place] [id number] Fever LUDA MENESES L 02/06 Released w/o Limitations [facility] [place]) OUTPATIENT [id number] school/ sports/ camp DAJUANROCHELLE L 03/04 Released w/o Limitations [place]Opt[place]) OUTPATIENT [id number] annual eye exam JEROMY COTO 07/01 Released w/o Limitations [place] OUTPATIENT [id number] Ear ache, possibl e ear infecti on MARIYA ANDERSON 01/26 Released w/o Limitations [place] OUTPAT[place] [id number] annual eye exam SHERRIE PEARSON 05/25 Released w/o Limitations [place] OUTPATIENT [id number] IGA deficie ncy screen KASIA MURPHY 06/16 Released w/o Limitations [place] OUTPATIENT [id number] Possibl e UTI MARIYA ANDERSON 04/09 Released w/o Limitations [place] OUTPATIENT [id number] Follow up UTI MARIYA ANDERSON 05/08 Released w/o Limitations [place] OUT[place] [id number] Annual Eye Exam - Glasses SHERRIE PEARSON 06/07 Released w/o Limitations [place] OUTPATIENT [id number] follow- up for urinary problem s MARIYA ANDERSON 06/22 Released w/o Limitations [place] OUTPATIENT [id number] 1 urinary inconti nence follow- up, would like a referra MARIYA Mccoy 08/21 Released w/o Limitations [place] OUTPATIENT [id number] 3 poss upper respirt ory infecti on KASIA MURPHY 11/09 Released w/o Limitations [place] OUTPATIENT [id number] 5 [facility] MARIYA Patton 12/14 Released w/o Limitations [place] TELE CONSULT [id number] Notes Entered by: RAFAEL DESHPANDE 19 Dec 2018 1700 ------- ------- ------- ------- -- Note sent via [employer] CB #[phone] RICHARD ANDERSONEMILY King 12/19 [place] OUTPATIENT [id number] Notes Entered by: AJIT RODRIGUEZ 01 Jan 2019 1021 ------- ------- ------- ------- -- AJIT Woodson 01/01 Released w/o Limitations [place] [place] OUTPATIENT [id number] 1 medicat ion MOY Ramos 04/08 Released w/o Limitations [facility] [place] Integr[place] Procedures Combined list of: 1) Procedures from Department of Veterans Affairs facilities going back up to thelast 18 months, not all VA non-surgical procedures are included; 2) All procedures from the Department of Defense facilities. Procedure Procedure Type Code Date Perfomer Comments Sourc e Influenza Split Virus Vaccine 0.5mL Dosage Intramuscular 08/31 PRINCESS FERRO Immunization Administration By Injection, One Vaccine Immunization Administration By Injection, One Vaccine 03669 08/31 PRINCESS FERRO Hep A Vac Ped/Adol Dosage (Intramusc Use) 2 Dose Schedule Hep A Vac Ped/Adol Dosage (Intramusc Use) 2 Dose Schedule 99776 02/22 PRINCESS FERRO [facility] Immunization Administration By Injection, One Vaccine Immunization Administration By Injection, One Vaccine 9441702/22 PRINCESS FERRO [facility] Immunization Administration By Injection, One Vaccine Immunization Administration By Injection, One Vaccine 03667 08/23 PRINCESS FERRO [facility] Hep A Vac Ped/Adol Dosage (Intramusc Use) 2 Dose Schedule Hep A Vac Ped/Adol Dosage (Intramusc Use) 2 Dose Schedule 30425 08/23 PRINCESS FERRO [facility] Psychotherapy Individual Approximately 60 Minutes Psychotherapy Individual Approximately 60 Minutes 61985 03/11 INES CAMERON [facility] Psychotherapy Indiv Interactive Approx 30 Min W/ Medical Eval & Management Psychotherapy Indiv Interactive Approx 30 Min W/ Medical Eval & Management 09063 02/14 REGINALD DIAS [facility] Psychotherapy Interactive Complexity Psychotherapy Interactive Complexity 17791 02/06 INES CAMERON [facility] Psychotherapy Individual Approximately 60 Minutes Psychotherapy Individual Approximately 60 Minutes 79844 02/06 INES CAMERON [facility] Psychotherapy Individual Approximately 60 Minutes Psychotherapy Individual Approximately 60 Minutes 57709 01/18 INES CAMERON [facility] Health And Behav A e mt Each 15 Min Initial A e ment 01/01 AJIT YO [facility] Psychotherapy Indiv Interactive Approx 30 Min W/ Medical Eval & Management Psychotherapy Indiv Interactive Approx 30 Min W/ Medical Eval & Management 36484 12/21 REGINALD DIAS [facility] Human Papilloma Virus Vaccine, Nonavalent Human Papilloma Virus Vaccine, Nonavalent 99092 12/17 MARIYA ANDERSON HPV9; Series #: 1; .5 mL; IM; Left Arm; [facility]: Playdate App; Lot: [id number]; VIS given (Tere: 08/26/2016). [facility] Immunization Administration By Injection, One Vaccine Immunization Administration By Injection, One Vaccine 81800 12/17 MARIYA ANDERSON Name & verified, allergies & medications reviewed, no contraindications for vaccine ordered, immunizations administered as ordered, tolerated well, refer to [facility][id number] for [facility] info & expiration date. VIS given. Pt remained in waiting room for 15 minutes after vaccine. No reaction noted. DoD Immunization Administration By Injection, Each Additional Vaccine Immunization Administration By Injection, Each Additional Vaccine 55491 12/17 MARIYA ANDERSON [facility] Meningococcal Polysaccharide Diphtheria Toxoid Conjugate Vaccine 12/17 MARIYA ANDERSON Meningococcal MCV4P; Series #: 2; .5 mL; IM; Right Arm; Mfg: Sanofi Pasteur; Lot: [id number]; VIS given (Tere: 12/24/2015). [facility] Psychotherapy For Crisis Intervention Each Additional 30 Minutes Psychotherapy For Crisis Intervention Each Additional 30 Minutes 82275 12/10 INES CAMERON DoD Psychotherapy Interactive Complexity Psychotherapy Interactive Complexity 71255 12/10 INES CAMERON DoD Psychotherapy Individual Approximately 60 Minutes Psychotherapy Individual Approximately 60 Minutes 04316 12/10 INES CAMERON DoD Psychotherapy Individual Approximately 60 Minutes Psychotherapy Individual Approximately 60 Minutes 75335 11/09 INES CAMERON DoD Psychotherapy Individual Approximately 60 Minutes Psychotherapy Individual Approximately 60 Minutes 70183 10/19 INES CAMERON Psychotherapy Interactive Complexity Psychotherapy Interactive Complexity 22285 09/26 INES CAMERON Psychotherapy For Crisis Intervention First 60 Minutes Psychotherapy For Crisis Intervention First 60 Minutes 67938 09/26 INES CAMERON DoD Psychotherapy Individual Approximately 60 Minutes Psychotherapy Individual Approximately 60 Minutes 97094 09/14 INES CAMERON DoD Psychotherapy Indiv Interactive Approx 45 Min W/ Medical Eval & Management Psychotherapy Indiv Interactive Approx 45 Min W/ Medical Eval & Management 49667 08/13 REGINALD DIAS DoD Psychotherapy Individual Approximately 60 Minutes Psychotherapy Individual Approximately 60 Minutes 37087 08/03 INES CAMERON Psychotherapy For Crisis Intervention Each Additional 30 Minutes Psychotherapy For Crisis Intervention Each Additional 30 Minutes 87721 07/18 INES CAMERON DoD Psychotherapy Individual Approximately 60 Minutes Psychotherapy Individual Approximately 60 Minutes 85251 07/18 INES CAMERON DoD Psychotherapy Interactive Complexity Psychotherapy Interactive Complexity 08284 06/15 INES CAMERON DoD Psychotherapy Individual Approximately 60 Minutes Psychotherapy Individual Approximately 60 Minutes 71325 06/15 INES CAMERON Ophthalmological Prior Patient Start Comprehensive Care Ophthalmological Prior Patient Start Comprehensive Care 61655 06/07 SHERRIE PEARSON DoD Determination Of Refractive State Determination Of Refractive State 65559 06/07 SHERRIE PEARSON DoD Psychotherapy Individual Approximately 60 Minutes Psychotherapy Individual Approximately 60 Minutes 13752 06/03 INES CAMERON DoD Psychotherapy Interactive Complexity Psychotherapy Interactive Complexity 73593 05/07 KAITLYNN [place] C DoD Psychotherapy Individual Approximately 60 Minutes Psychotherapy Individual Approximately 60 Minutes 73280 05/07 INES CAMERON C DoD Psychotherapy Indiv Interactive Approx 30 Min W/ Medical Eval & Management Psychotherapy Indiv Interactive Approx 30 Min W/ Medical Eval & Management 28317 05/02 REGINALD DIAS DoD Psychotherapy Individual Approximately 60 Minutes Psychotherapy Individual Approximately 60 Minutes 14916 04/30 INES CAMEORN C DoD Psychotherapy Individual Approximately 60 Minutes Psychotherapy Individual Approximately 60 Minutes 75226 04/23 INES CAMERON C DoD Psychotherapy Interactive Complexity Psychotherapy Interactive Complexity 59116 04/11 [place]ITLYNN [place] DoD Psychotherapy Individual Approximately 60 Minutes Psychotherapy Individual Approximately 60 Minutes 51728 04/11 [place]NN [place] DoD Psychotherapy Indiv Interactive Approx 45 Min W/ Medical Eval & Management Psychotherapy Indiv Interactive Approx 45 Min W/ Medical Eval & Management 98900 03/13 REGINALD DIAS DoD Psychotherapy Individual Approximately 60 Minutes Psychotherapy Individual Approximately 60 Minutes 87262 03/02 LARKAITLYNN [place] C DoD Psychotherapy Interactive Complexity Psychotherapy Interactive Complexity 95624 02/07 [place]LYNN [place] DoD Psychotherapy Individual Approximately 60 Minutes Psychotherapy Individual Approximately 60 Minutes 29105 02/07 [place]LYNN [place] DoD Psychotherapy Interactive Complexity Psychotherapy Interactive Complexity 21720 01/26 LARKAITLYNN [place] C DoD Psychotherapy Individual Approximately 60 Minutes Psychotherapy Individual Approximately 60 Minutes 30241 01/26 LARKAITLYNN [place] C DoD Psychotherapy Indiv Interactive Approx 45 Min W/ Medical Eval & Management Psychotherapy Indiv Interactive Approx 45 Min W/ Medical Eval & Management 92670 01/17 REGINALD DIAS DoD Psychotherapy Indiv Interactive Approx 30 Min W/ Medical Eval & Management Psychotherapy Indiv Interactive Approx 30 Min W/ Medical Eval & Management 25031 12/25 REGINALD DIAS DoD Psychotherapy Individual Approximately 60 Minutes Psychotherapy Individual Approximately 60 Minutes 59878 12/21 INES CAMERON DoD Psychotherapy Interactive Complexity Psychotherapy Interactive Complexity 79553 12/08 INES CAMERON DoD Psychotherapy Individual Approximately 60 Minutes Psychotherapy Individual Approximately 60 Minutes 43255 12/08 INES CAMERON DoD Psychotherapy Interactive Complexity Psychotherapy Interactive Complexity 65551 11/24 INES CAMERON DoD Psychotherapy Individual Approximately 60 Minutes Psychotherapy Individual Approximately 60 Minutes 84114 11/24 INES CAMERON Psychiatric Diagnostic Evaluation With Medical Evaluation And Management Psychiatric Diagnostic Evaluation With Medical Evaluation And Management 66194 11/17 REGINALD DIAS DoD Psychotherapy Individual Approximately 60 Minutes Psychotherapy Individual Approximately 60 Minutes 68081 11/09 INES CAMERON DoD Psychotherapy Individual Approximately 60 Minutes Psychotherapy Individual Approximately 60 Minutes 77209 10/20 INES CAMERON Ophthalmological Prior Patient Start Comprehensive Care Ophthalmological Prior Patient Start Comprehensive Care 53802 05/25 SHERRIE PEARSON Determination Of Refractive State Determination Of Refractive State 03785 05/25 SHERRIE PEARSON Scanning Computerized Ophthalmic Diagnostic Imaging Optic Nerve Scanning Computerized Ophthalmic Diagnostic Imaging Optic Nerve 69396 05/25 SHERRIE PEARSON Psychotherapy Individual Approximately 60 Minutes Psychotherapy Individual Approximately 60 Minutes 55820 02/08 INES CAMERON Cerumen Removal Left Ear Irrigation Incomplete Cerumen Removal Left Ear Irrigation Incomplete 25720 01/26 MARIYA ANDERSON Left Ear Irrigation was done to remove wax from her left ear. DoD Cerumen Removal Left Ear Curette Incomplete Cerumen Removal Left Ear Curette Incomplete 28668 01/26 MARIYA ANDERSON Attempted to remove moist cerumen from canal to be able to view TM. After several attempts there was still cerumen blocking my view. PT's Ear was washed and wax was removed with the elephant ear wash. DoD Psychotherapy Interactive Complexity Psychotherapy Interactive Complexity 17071 12/13 INES CAMERON DoD Psychotherapy Individual Approximately 60 Minutes Psychotherapy Individual Approximately 60 Minutes 65245 12/13 INES CAMERON DoD Psychotherapy Individual Approximately 60 Minutes Psychotherapy Individual Approximately 60 Minutes 93984 12/03 INES CAMERON DoD Psychotherapy Interactive Complexity Psychotherapy Interactive Complexity 47903 11/14 INES CAMERON DoD Psychotherapy Individual Approximately 60 Minutes Psychotherapy Individual Approximately 60 Minutes [id number] 11/14 INES CAMERON DoD Psychotherapy Interactive Complexity Psychotherapy Interactive Complexity [id number] 10/25 INES CAMERON C DoD Psychotherapy Individual Approximately 60 Minutes Psychotherapy Individual Approximately 60 Minutes [id number] 10/25 INES CAMERON DoD Psychotherapy Interactive Complexity Psychotherapy Interactive Complexity [id number] 09/30 INES CAMERON DoD Psychotherapy Individual Approximately 60 Minutes 09/30 INES CAMERON DoD Psychotherapy Interactive Complexity Psychotherapy Interactive Complexity [id number] 09/08 INES CAMERON DoD Psychotherapy Individual Approximately 60 Minutes 09/08 INES CAMERON DoD Psychotherapy Interactive Complexity Psychotherapy Interactive Complexity [id number] 08/24 INES CAMERON DoD Psychotherapy Individual Approximately 60 Minutes 08/24 INES CAMERON DoD Psychotherapy Individual Approximately 60 Minutes 08/16 INES CAMERON DoD Psychotherapy Individual Approximately 60 Minutes 07/22 INES CAMERON DoD Psychotherapy Individual Approximately 60 Minutes 07/17 INES CAMERON Daisy Psychiatric Diagnostic Evaluation Initial Psychiatric Diagnostic Evaluation Initial [id number] 07/08 INES CAMERON Daisy Scanning Computerized Ophthalmic Diagnostic Imaging Optic Nerve Scanning Computerized Ophthalmic Diagnostic Imaging Optic Nerve 30553 07/01 JEROMY COTO Determination Of Refractive State Determination Of Refractive State 22937 07/01 JEROMY COTO Ophthalmological New Patient Start Comprehensive Care Ophthalmological New Patient Start Comprehensive Care [id number] 07/01 JEROMY COTO Corneal Pachymetry Both Eyes Corneal Pachymetry Both Eyes [id number] 06/24 EVIE ANTHONY Scanning Computerized Ophthalmic Diagnostic Imaging Optic Nerve Scanning Computerized Ophthalmic Diagnostic Imaging Optic Nerve 96979 06/24 VEIE ANTHONY Ophthalmological New Patient Start Comprehensive Care Ophthalmological New Patient Start Comprehensive Care 17751 06/24 EVIE ANTHONY Meningococcal (A, C, Y, W-135) Oligosacch Diphtheria Toxoid Conj Vacc 05/01 PRINCESS FERRO Meningococcal A,C,Y,W-135 Diphtheria Conj; Series #: 1; .5 mL; IM; Left Arm; Mfg: [employer]; Lot: [id number]; VIS given (Tere: 07/08/11). [facility] Tdap Vaccine Tdap Vaccine 69378 05/01 PRINCESS FERRO Tdap; Series #: 1; .5 mL; IM; Right Arm; Mfg: [employer]; Lot: [id number]; VIS given (Tere: 02/10/13). DoD Immunization Administration By Injection, One Vaccine Immunization Administration By Injection, One Vaccine 10671 05/01 PRINCESS FERRO IM Medication Administration: Patient Identification verified using Full Name and . DoD Immunization Administration By Injection, Each Additional Vaccine Immunization Administration By Injection, Each Additional Vaccine 47054 05/01 PRINCESS FERRO [facility] Screening Test Of Visual Acuity, Quantitative, Bilateral Screening Test Of Visual Acuity, Quantitative, Bilateral 90769 03/22 MOY QUIJANO Non-Physician Phone Call To Patient/Provider Brief (5-10min) Non-Physician Phone Call To Patient/Provider Brief (5-10min) 66123 02/14 MIRELLA CLARK Screening Test Of Visual Acuity, Quantitative, Bilateral Screening Test Of Visual Acuity, Quantitative, Bilateral 24250 02/02 SUGEY STUART right 20/25-cirrected left 20/20-corrected both 20/20-corrected DoD Screening Test Of Visual Acuity, Quantitative, Bilateral Screening Test Of Visual Acuity, Quantitative, Bilateral 36715 01/28 CHIARA ESPINOZA [facility] Influenza Virus Vaccine Intranasal Live Attenuated 08/29 MEKA CRUZ [facility] IV Infusion For Hydration Each Additional Hour 05/29 GAURANG OQUENDO Intravenous Catheter Placement Intravenous Catheter Placement 21334 05/29 GAURANG OQUENDO Parenteral Fluids IV Infusion 05/29 GAURANG OQUENDO Pulse Oximetry Pulse Oximetry 71108 12/05 MARK ARMENTA [facility] Tympanometry Tympanometry 20563 04/12 UAVLDO CLIFTON Acoustic Reflex Testing 04/12 UVALDO CLIFTON Audiometry Speech Threshold Audiometry Speech Threshold 05628 04/12 UVALDO CLIFTON Threshold Audiogram (Pure Tone) Threshold Audiogram (Pure Tone) 78056 04/12 UVALDO CLIFTON [facility] Human Papilloma Virus Vaccine, Nonavalent Human Papilloma Virus Vaccine, Nonavalent 13052 MAEVE OLSON HPV9; Series #: 2; 0.5 mL; IM; Left Arm; Mfg: [employer]; Lot: [id number]; VIS given (Tere: 07/24/2019). DoD Immunization Administration By Injection, One Vaccine Immunization Administration By Injection, One Vaccine 73740 MAEVE OLSON [facility] INFLUENZA VIRUS VACCINE, TRIVALENT, LIVE (LAIV3), FOR INTRANASAL USE 08/29 [facility] INTRAVENOUS INFUSION, HYDRATION; EACH ADDITIONAL HOUR (LIST SEPARATELY IN ADDITION TO CODE FOR PRIMARY PROCEDURE) 05/29 [facility] NONINVASIVE EAR OR PULSE OXIMETRY FOR OXYGEN SATURATION; SINGLE DETERMINATION 12/05 [facility] ACOUSTIC REFLEX TESTING, THRESHOLD 04/12 [facility] SCREENING TEST OF VISUAL ACUITY, QUANTITATIVE, BILATERAL 03/22 [facility] TELE ASSESS & MGT SRV PROV QUAL NONPHYS HLTH CARE PRO TO EST PAT,PARENT,GUARD NOT ORIG REL ASSESS & MGT SRV PROV W/IN PREV 7 DAYS NOR LEAD ASSESS & MGT SRV/PX W/IN NXT 24 HR/SOON APT;5-10 MIN MED DIS 02/14 [facility] SCREENING TEST OF VISUAL ACUITY, QUANTITATIVE, BILATERAL 02/02 [facility] SCREENING TEST OF VISUAL ACUITY, QUANTITATIVE, BILATERAL 01/28 [facility] HUMAN PAPILLOMAVIRUS VACCINE TYPES 6, 11, 16, 18, 31, 33, 45, 52, 58, NONAVALENT (9VHPV), 2 OR 3 DOSE SCHEDULE, FOR INTRAMUSCULAR USE 04/08 [facility] OPHTHALMIC ULTRASOUND, ECHOGRAPHY, DIAGNOSTIC; CORNEAL PACHYMETRY, UNILATERAL [...] L MONITOR, HEALTH-ORIENT QUESTIONNAIRES), EA 15 MIN [id number] W THE PATIENT; INIT ASSESSMENT 01/01 DoD PSYCHOTHERAPY, 30 MINUTES WITH PATIENT WHEN PERFORMED WITH AN EVALUATION AND MANAGEMENT SERVICE (LIST SEPARATELY IN ADDITION TO THE CODE FOR PRIMARY PROCEDURE) 12/18 [facility] MENINGOCOCCAL CONJUGATE VACCINE, SEROGROUPS A, C, W, Y, QUADRIVALENT, DIPHTHERIA TOXOID CARRIER (MENACWY-D) OR [id number] CARRIER (MENACWY-CRM), FOR INTRAMUSCULAR USE 12/17 DoD [...] INSTRUMENT 07/15 DoD PSYCHIATRIC DIAGNOSTIC EVALUATION 07/07 [facility] DETERMINATION OF REFRACTIVE STATE 07/01 DoD No data available for this section Ambulato ry Pharmacy Social History Combined list of available smoking, [...] Plan No data available for this section 10/19/2023 Ambulatory Pharmacy Functional Status Combined list of recent functional and cognitive assessments recorded at [facility] Functional Waterflow Measurement (FIM) Scale: 1 = Total Assistance (Subject = 0% +), 2 = Maximal Assistance (Subject = 25% +), 3 = Moderate Assistance (Subject = 50% +), 4 = Minimal Assistance (Subject = 75% +), 5 = Supervision, 6 = Modified Waterflow (Device), 7 = Complete Waterflow (Timely, Safely). Assessment Date/Time Source Assessment Type Assessment Skill Assessment Score Assessment Details No data available for this section
== END 2023-10-18 13:59 | disposition home or self-care (01) ==
LOC: AMB 10-19 06:18
PROVIDERS: PCP Family Medicine; Visit Provider Family Medicine
DX: F29 Unspecified psychosis not due to a substance or known physiological condition (principal)
CPT/HCPCS: A0425; A0427

== ENCOUNTER 2023-10-18 14:21 | Emergency (ER) | payer OTHER, SELFPAY ==
[2023-10-18] VITALS (18 sets, daily range): BP systolic 92–113; BP diastolic 54–82; PULSE 84–120; RESP 16–20; TEMP 36.8–37.4; O2SAT 95–100
--- NOTE | 2023-10-18 14:40 | ED.NURSE ---
Pt attempted to elope from triage room, running through the ER hallway. Pt physically stopped by Associate Designer in the hallway, pt then dropped to the floor and curled up in position. Dr. TORREZ activated, team responded. Pt unwilling to speak with staff. MD Schwartz attempted to speak with pt for several minutes as pt lay on the hallway floor. Pt continued to refuse to verbally respond but would nod occasionally in response to MD Schwartz. ER safe room was prepared for the pt while Dr. TORREZ team stood by. Once the safe room was ready, MD Schwartz was able to convince pt to stand and walk down the hernandez to the room. Dr. TORREZ team departed once pt was in the room.
--- NOTE | 2023-10-18 14:50 | ED.NURSE ---
Senior Manufacturing Supervisor and MD Schwartz attempted to speak with pt in her room. Pt continued to be unwilling to respond verbally to questions. Pt unwilling to acknowledge or agree to intake process for psych eval. MD Schwartz spoke with pt for several minutes, pt was unwilling to agree to cooperate or to take medication to help her calm down. Pt was provided with a marker and paper and was willing to write down some messages to MD Schwartz on that. Pt did not answer MD Schwartz's questions directly, pt just wrote down that she did not want to be here. Pt also wrote down that she was terrified of us giving her any medication. MD Schwartz explained to pt several times that she needed to take PO medication to help her calm down to be evaluated or she would be given a shot of medication. Pt continued to refuse to respond at this time. MD Schwartz then ordered IM meds to be given. Staff exited room to prepare a team and prepare medications. Video monitoring in place at this time.
[2023-10-18] MEDS: droperidoL 2.5 MG/ML inj IM (15:05)
[2023-10-18] MEDS: MIDAZOLAM HCL 1 MG/ML inj IM (15:05)
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
--- NOTE | 2023-10-18 15:37 | ED.NURSE ---
Flatbed Truck Driver attempted to speak with pt again at this time, pt still unwilling to verbally respond to blog writer. Pt did permit blog writer to adjust BP cuff for proper fit. Flatbed Truck Driver asked pt again if pt was willing to permit cardiac tech to be applied, pt did not answer and turned away from blog writer. Flatbed Truck Driver explained purpose and importance of cardiac tech after med administration, pt continued to stay turned away from blog writer and would not permit application of cardiac leads at this time.
--- NOTE | 2023-10-18 15:45 | ED.NURSE ---
Pt seen on video monitoring sitting up in bed. Paper Sales Manager entered room and spoke with pt, pt now willing to speak to junior technical writer at this time. Pt speaking in a quiet voice and very short, choppy statements. Pt stated that she wanted to return back to her college campus and stated that she does not like when public safety checks on her when she has similar screaming episodes on campus. Paper Sales Manager advised pt that MD would come speak with her now that she was willing to converse. Pt agreeable to this.
--- NOTE | 2023-10-18 16:00 | ED.NURSE ---
Pt up to doorway, requesting to use the restroom. Pt ambulatory to the bathroom independently, pt willing to provide UA at this time. UA collected and sent to lab. Pt returned back to room without issue.
--- OUTSIDE RECORDS SUMMARY | 2023-10-18 16:00 | XMS_ITS | Continuity of Care Document ---
Author Name [facility] Organization [facility] Care Team Providers Care Kettle Tender Name Role Phone [facility] Unavailable Unavailable Problems Combined list of problems from Department of Defense and Veterans Affairs facilities. It does not include entries that were removed or entered in error. Problem Status Onset Date Problem Type Date of Resolution Comments Source anxiety disorder NOS Active Condition DoD other specified viral disease Inactive Condition DoD visit for: camp physical Inactive Condition DoD skin: rash [as Sx] Inactive Condition Do D viral syndrome Inactive Condition DoD visit for: well child visit Inactive Condition DoD Observation For Suspected Condition Active Condition DoD visit for: examination for sports competition Active Condition DoD gastroenteritis Active Condition DoD Vomiting Inactive Condition DoD dehydration (Na, H2O) Inactive Condition DoD upper respiratory infection Inactive Condition Continue supportive care and sx tx. DoD visit for: exam following treatment Inactive Condition Resolved OM. DoD visit for: administrative purpose Inactive Condition DoD perirectal abscess anaerobic streptococcal Active Condition discussed with mom that this is the most likely diagnosis. I told her that a culture would help establish the diagnosis but given her apprehension case treat empirically. She should return to clinic if not better or if fever. It took Karmen a while to calm down from crying but she was fine after the visit ended. [facility] Preventive Medicine New Patient Evaluation Childhood 1-4 Years Inactive Condition DoD Need For Vaccination Against Influenza Inactive Condition [facility] upper respiratory infection acute Inactive Condition She had an e ar infection in the right ear. We will treat with AMOX(AHLTA) is not allowing us to use the otitis media code for diagnosis. DoD visit for: follow-up exam Inactive Condition Resolved otit is media1)F/u at 6 year well child visit; sooner for concerns DoD otitis media Active Condition [facility] Need For Vaccination Hepatitis A Inactive Condition [facility] routine history and physical preschool (3 - 6 yrs) Inactive Condition Hearing and middle ear function within normal limits, bilaterally. DoD Medications Combined list of outpatient medications from Department of Defense and Veterans Affairs facilities.Medications provided include 1) outpatient medications from the last 15 months, and 2) patient-reported medications. Medication Details Route Status Patient Instructions Prescription Expires Prescription Number Last Dispense Date Ordering Provider Order Date Source AMOXICILLIN 875 MG ORAL TAB Finish the prescrip tion. Active 10/25/2023 [id number] 3 2022 [facility] amoxicillin 875 mg tablet See Rx Instruct ions, # 14 EA, 0 total refill(s ), Hard Stop Ordered 10/25/2023 Ambul at ory Pharmac y buPROPion 150 mg/24 hours (XL) oral tablet, extended release buPROPio n 150 mg/24 hours (XL) oral tablet, extended release Start Date: 10/07/21 Status: Ordered Ordered No Facilit y Access buPROPion 150 mg/24 hours (XL) oral tablet, extended release 1 TABLET IN THE MORNING ORALLY ONCE A DAY 90 DAYS, # 90 EA, 1 total refill(s ), Acute Complet ed 03/07/2023 Ambulat ory Pharmac y Chlorhexidi ne Gluconate, 0.12%, Mouthwash Active 10/25/2023 [id number] 3 2022 [facility] chlorhexidi ne oral rinse 0.12% liquid [473mL] See Rx Instruct ions, # 473 mL, 3 total refill(s ), Hard Stop Ordered 10/25/2023 Ambul at ory Pharmac y escitalopra m 10 mg oral tablet escitalo pram 10 mg oral tablet Start Date: 01/13/21 Status: Ordered Ordered No Facilit y Access escitalopra m 20 mg oral tablet escitalo pram 20 mg oral tablet Start Date: 10/10/21 Status: Ordered Ordered No Facilit y Access escitalopra m 20 mg oral tablet 1 TABLET ORALLY ONCE A DAY 90 DAYS, # 90 EA, 1 total refill(s ), Acute Complet ed 03/07/2023 Ambulat ory Pharmac y Allergies, Adverse Reactions, Alerts Combined list of allergies from Department of Defense and Veterans Affairs facilities. It does not include entries that were removed or entered in error. Substance Category Reaction Severity Reaction type Status Date Reported Comments Source NO OUTPUT FOR NCID [id number] Drug allergy (disorder) active 12/06/2007 [facility] [place] [place] Immun[facility] Combined list of available immunizations from the Department of Defense and Veterans Affairs facilities. Immunization Series Date Given Administered By Site Reaction Lot Number CVX Code Drug Pneumatic Jack Operator Status Comments Source COVID-19, mRNA, LNP-S, PF, 30 mcg/0.3 mL dose 2021 [employer] [place] (PFR) Not Given COVID-19, mRNA, LNP-S, PF, 30 mcg/0.3 mL dose DoD Human Papillomaviru s 9-valent vaccine 2019 Left Arm [id number] 165 [employer] complet ed Human Papilloma virus 9-valent vaccine 04/08/20 Given Ambulat ory Pharmac y Human Papillomaviru s 9-valent vaccine 2 2019 MAEVE OLSON [id number] 165 Merck (MSD) compl et ed Human Papilloma virus 9-valent vaccine DoD meningococcal A,C,Y,W-135 (MCV4P) 2018 Right Arm [id number] 114 sanofi pasteur complet ed meningoco ccal A,C,Y,W-1 35 (MCV4P) 12/17/18 Given Ambulat ory Pharmac y Human Papillomaviru s 9-valent vaccine 2018 Left Arm [id number] 165 [employer] complet ed Human Papilloma virus 9-valent vaccine 12/17/18 Given Ambulat ory Pharmac y meningococcal polysaccharid e (groups A, C, Y and W-135) diphtheria toxoid conjugate vaccine (MCV4P) 2 2018 RAFAEL DESHPANDE [id number] 114 Sanofi Pasteur (PMC) complet ed meningoco ccal polysacch aride (groups A, C, Y and W-135) diphtheri a toxoid conjugate vaccine (MCV4P) DoD Human Papillomaviru s 9-valent vaccine 1 2018 RAFAEL DESHPANED [id number] 165 Merck (MSD) complet ed Human Papilloma virus 9-valent vaccine DoD tetanus, diphtheria, acellular pertu is 2013 Right Arm [id number] 115 [facility] ed tetanus, diphtheri a, acellular pertussis 05/01/14 Given Ambulat ory Pharmac y meningococcal A,C,Y,W-135 (MCV4P) 2013 Left Arm [id number] 114 sanofi pasteur complet ed meningoco ccal A,C,Y,W-1 35 (MCV4P) 05/01/14 Given Ambulat ory Pharmac y meningococcal polysaccharid e (groups A, C, Y and W-135) diphtheria toxoid conjugate vaccine (MCV4P) 1 2013 PRINCESS FERRO [id number] 114 Sanofi Pasteur (PMC) complet ed meningoco ccal polysacch aride (groups A, C, Y and W-135) diphtheri a toxoid conjugate vaccine (MCV4P) DoD tetanus toxoid, reduced diphtheria toxoid, and acellular pertu is vaccine, adsorbed 1 2013 PRINCESS FERRO [id number] [address] [place] [address] (SKB) complet ed tetanus toxoid, reduced diphtheri a toxoid, and acellular pertussis vaccine, adsorbed DoD influenza virus vaccine, live 2007 Body, Whole TRANSCR IBED 111 complet ed influenza virus vaccine, live 08/27/08 Given Ambulat ory Pharmac y influenza virus vaccine, live, attenuated, for intranasal use 1 2007 111 Transcribed (TRS) complet ed influenza virus vaccine, live, attenuate d, for intranasa l use DoD varicella virus vaccine 2006 Transcr ibed 21 complet ed varicella virus vaccine 01/15/07 Given Ambulat ory Pharmac y measles/mumps /rubella virus vaccine 2006 Transcr ibed 03 complet ed measles/m umps/rube lla virus vaccine 01/15/07 Given Ambulat ory Pharmac y poliovirus vaccine, inactivated 2006 Transcr ibed 10 complet ed polioviru s vaccine, inactivat ed 01/15/07 Given Ambulat ory Pharmac y DTaP 2006 Transcr ibed 20 complet ed DTaP 01/15/07 Given Ambulat ory Pharmac y measles, mumps and rubella virus vaccine 2 2006 Unknown, Provider Transcr ibed 03 Transcribed (TRS) complet ed measles, mumps and rubella virus vaccine DoD poliovirus vaccine, inactivated 4 2006 Unknown, Provider Transcr ibed 10 Transcribed (TRS) complet ed polioviru s vaccine, inactivat ed DoD diphtheria, tetanus toxoids and acellular pertu is vaccine 5 2006 Unknown, Provider Transcr ibed 20 Transcribed (TRS) complet ed diphtheri a, tetanus toxoids and acellular pertussis vaccine DoD varicella virus vaccine 2 2006 Unknown, Provider Transcr ibed 21 Transcribed (TRS) complet ed varicella virus vaccine DoD influenza virus vaccine, whole virus 2005 Left Arm [id number] 16 Unknown complet ed influenza virus vaccine, whole virus 08/31/06 Given Ambulat ory Pharmac y influenza virus vaccine, whole virus 1 2005 SUNG [place] LEÓN [id number] 16 Other (OTH) complet ed influenza virus vaccine, whole virus DoD Hep A, pediatric, unspecified formul 2005 Left Arm [id number] 31 GlaxoSmithKli ne complet ed Hep A, pediatric , unspecifi ed formul 02/22/06 Given Ambulat ory Pharmac y hepatitis A vaccine, pediatric dosage, unspecified formulation 2 2005 [place] LEÓN [id number] [id number] 31 [employer] (SKB) complet ed hepatitis A vaccine, pediatric dosage, unspecifi ed formulati on DoD Hep A, pediatric, unspecified formul 2004 Left Arm [id number] 31 GlaxoSmithKli ne complet ed Hep A, pediatric , unspecifi ed formul 08/23/05 Given Ambulat ory Pharmac y hepatitis A vaccine, pediatric dosage, unspecified formulation 1 2004 SUNG [place] LEÓN [id number] 31 [employer] (SKB) complet ed hepatitis A vaccine, pediatric dosage, unspecifi ed formulati on DoD Hib, unspecified formulation 2002 Transcr ibed 17 complet ed Hib, unspecifi ed formulati on 07/31/03 Given Ambulat ory Pharmac y DTaP 2002 Transcr ibed 20 complet ed DTaP 07/31/03 Given Ambulat ory Pharmac y Haemophilus influenzae type b vaccine, conjugate unspecified formulation 4 2002 Unknown, Provider Transcr ibed 17 Transcribed (TRS) complet ed Haemophil us influenza e type b vaccine, conjugate unspecifi ed formulati on DoD diphtheria, tetanus toxoids and acellular pertu is vaccine 4 2002 Unknown, Provider Transcr ibed 20 Transcribed (TRS) complet ed diphtheri a, tetanus toxoids and acellular pertussis vaccine DoD measles/mumps /rubella virus vaccine 2002 Transcr ibed 03 complet ed measles/m umps/rube lla virus vaccine 04/28/03 Given Ambulat ory Pharmac y poliovirus vaccine, inactivated 2002 Transcr ibed 10 complet ed polioviru s vaccine, inactivat ed 04/28/03 Given Ambulat ory Pharmac y varicella virus vaccine 2002 Transcr ibed 21 complet ed varicella virus vaccine 04/28/03 Given Ambulat ory Pharmac y measles, mumps and rubella virus vaccine 1 2002 Unknown, Provider Transcr ibed 03 Transcribed (TRS) complet ed measles, mumps and rubella virus vaccine DoD poliovirus vaccine, inactivated 3 2002 Unknown, Provider Transcr ibed 10 Transcribed (TRS) complet ed polioviru s vaccine, inactivat ed DoD varicella virus vaccine 1 2002 Unknown, Provider Transcr ibed 21 Transcribed (TRS) complet ed varicella virus vaccine DoD Hib, unspecified formulation 2002 Transcr ibed 17 complet ed Hib, unspecifi ed formulati on 02 Given Ambulat ory Pharmac y hepatitis B vaccine, unspecified formul 2002 Transcr ibed 45 complet ed hepatitis B vaccine, unspecifi ed formul 02 Given Ambulat ory Pharmac y DTaP 2002 Transcr ibed 20 complet ed DTaP 02 Given Ambulat ory Pharmac y Haemophilus influenzae type b vaccine, conjugate unspecified formulation 3 2002 Unknown, Provider Transcr ibed 17 Transcribed (TRS) complet ed Haemophil us influenza e type b vaccine, conjugate unspecifi ed formulati on DoD diphtheria, tetanus toxoids and acellular pertu is vaccine 3 2002 Unknown, Provider Transcr ibed 20 Transcribed (TRS) complet ed diphtheri a, tetanus toxoids and acellular pertussis vaccine DoD hepatitis B vaccine, unspecified formulation 3 2002 Unknown, Provider Transcr ibed 45 Transcribed (TRS) complet ed hepatitis B vaccine, unspecifi ed formulati on DoD poliovirus vaccine, inactivated 2001 Transcr ibed 10 complet ed polioviru s vaccine, inactivat ed 02 Given Ambulat ory Pharmac y Hib, unspecified formulation 2001 Transcr ibed 17 complet ed Hib, unspecifi ed formulati on 02 Given Ambulat ory Pharmac y DTaP 2001 Transcr ibed 20 complet ed DTaP 02 Given Ambulat ory Pharmac y poliovirus vaccine, inactivated 2 2001 Unknown, Provider Transcr ibed 10 Transcribed (TRS) complet ed polioviru s vaccine, inactivat ed DoD Haemophilus influenzae type b vaccine, conjugate unspecified formulation 2 2001 Unknown, Provider Transcr ibed 17 Transcribed (TRS) complet ed Haemophil us influenza e type b vaccine, conjugate unspecifi ed formulati on DoD diphtheria, tetanus toxoids and acellular pertu is vaccine 2 2001 Unknown, Provider Transcr ibed 20 Transcribed (TRS) complet ed diphtheri a, tetanus toxoids and acellular pertussis vaccine DoD poliovirus vaccine, inactivated 2001 Transcr ibed 10 complet ed polioviru s vaccine, inactivat ed 02 Given Ambulat ory Pharmac y Hib, unspecified formulation 2001 Transcr ibed 17 complet ed Hib, unspecifi ed formulati on 02 Given Ambulat ory Pharmac y hepatitis B vaccine, unspecified formul 2001 Transcr ibed 45 complet ed hepatitis B vaccine, unspecifi ed formul 02 Given Ambulat ory Pharmac y DTaP 2001 Transcr ibed 20 complet ed DTaP 02 Given Ambulat ory Pharmac y poliovirus vaccine, inactivated 1 2001 Unknown, Provider Transcr ibed 10 Transcribed (TRS) complet ed polioviru s vaccine, inactivat ed DoD Haemophilus influenzae type b vaccine, conjugate unspecified formulation 1 2001 Unknown, Provider Transcr ibed 17 Transcribed (TRS) complet ed Haemophil us influenza e type b vaccine, conjugate unspecifi ed formulati on DoD diphtheria, tetanus toxoids and acellular pertu is vaccine 1 2001 Unknown, Provider Transcr ibed 20 Transcribed (TRS) complet ed diphtheri a, tetanus toxoids and acellular pertussis vaccine DoD hepatitis B vaccine, unspecified formulation 2 2001 Unknown, Provider Transcr ibed 45 Transcribed (TRS) complet ed hepatitis B vaccine, unspecifi ed formulati on DoD hepatitis B vaccine, unspecified formul 2001 Transcr ibed 45 complet ed hepatitis B vaccine, unspecifi ed formul 02 Given Ambulat ory Pharmac y hepatitis B vaccine, unspecified formulation 1 2001 Unknown, Provider Transcr ibed 45 Transcribed (TRS) complet ed hepatitis B vaccine, unspecifi ed formulati on DoD Vital Signs Combined list of inpatient and outpatient Vital Signs from Department of Defense and Veterans Affairs, ranging from 12 months to all on record, depending upon the facility. Vital Sign Value Date Comments Source No data available for this section Ambulatory Pharmacy Encounters Combined list of: 1) Encounters from Department of Veterans Affairs facilities going back up to thelast 18 months. 2) Encounters from the Department of Defense facilities going back up to 280 months. Location Location Details Encounter Type Encounter Number Reason For Visit Attending Provider ADM Date DC Date Status Disposition Source [facility] OUTPATIENT [id number] f/u ALEC LARKIN 01/18 Released w/o Limitations [facility] [place] [place]) OUTPATIENT [id number] immun-h av#1 PRINCESS FERRO 08/23 Released w/o Limitations [facility] [place] [place] [facility] [place]) OUTPATIENT [id number] daycare MONSE Orantes I 08/24 Released w/o Limitations [facility] [place] [facility] [place]) OUT[place] [id number] immun hep a #2 PRINCESS FERRO 02/22 Released w/o Limitations [facility] [place] [place] [facility] [place] OUTPATIENT [id number] EAR PAIN. AUSTIN CHRISTIANSON 03/23 Released w/o Limitations [facility] [place] [facility] [place] OUTPATIENT [id number] Make sure ear infecti on gone. MIKE GRACIA 04/17 Released w/o Limitations [facility] [place] [place]) OUTPATIENT [id number] EAR CHECK ALIEJAVAN LOZA Ezequiel 08/29 Released w/o Limitations [facility] [place] [place]) OUTPATIENT [id number] immun-f PRINCESS Feldman 08/31 Released w/o Limitations [facility] [place] [place] [address](Ped Social Work [facility]) OUTPATIENT [id number] [facility] [place] MARIE V 01/15 Released w/o Limitations [facility] [place] [address](P ed Social Work [facility]) [place] [address]([facility] Social Work [facility]) OUTPATIENT [id number] acute anal rash,da d accepts GAURANG RAMON 02/23 Released w/o Limitations [facility] [place] [address](P ed Social Work [facility]) [place] [address]([facility] Social Work [facility]) TELE CONSULT [id number] needs referal to audiolo gy please call dad or mom GAURANG RAMON 03/06 [facility] [place] [address](P ed Social Work [facility]) [place] [address](Aud iology [facility]) OUTPATIENT [id number] r/o hearing deficit ETIENNE, UVALDO S 04/12 Released w/o Limitations [facility] [place] [address](A udiolog y [facility]) [place] [address](Ped Social Work [facility]) TELE CONSULT [id number] MARK ROGERS 06/04 [facility] [place] [address](P ed Social Work [facility]) [place] [address](Ped Social Work [facility]) OUTPATIENT [id number] f/u for ear infecti on MARK ARMENTA L 06/22 Released w/o Limitations [facility] [place] [address](P ed Social Work [facility]) [facility] [place] [address]([facility] Social Work [facility]) OUTPATIENT [id number] FEVERS/ EAR ACHES/S ORE THROAT MARK ARMENTA L 12/05 Released w/o Limitations [facility] [place] [address](P ed Social Work [facility]) [facility] [place] [address]([facility] Social Work [facility]) OUTPATIENT [id number] vomitti ng/feve r...[facility] C Peds 1 [place] GAURANG QUEZADA 05/29 Released w/o Limitations [facility] [place] [address](P ed Social Work [facility]) [place] [address]([facility] Social Work [facility]) OUTPATIENT [id number] Flu Fair 27 Aug 2008 MEKA CRUZ 08/29 Released w/o Limitations [facility] [place] [address](P ed Social Work [facility]) [place] [address]([facility] Social Work [facility]) OUTPATIENT [id number] vomitin g/diarr hea comes&g oes MAUREEN SNELL 04/01 [facility] Limitations [facility] [place] [address](P ed Social Work [facility]) [facility] [place] [facility]) OUTPATIENT [id number] physica l NATALY MCKEON 07/10 Released w/o Limitations [facility] [place] [facility] [place]) OUT[place] [id number] EVIE ANDERSON 11/20 Released w/o Limitations [facility] [place] ([facility] M04A RHC One) OUTPATIENT [id number] 9Y/O CYS PHYSICA L EXAM//0 63092 CHIARA ESPINOZA 01/28 Released w/o Limitations [facility] H M04A RH One) [facility] M04A RHC One) OUTPATIENT [id number] 10YO/Spo rts pe//5Ma y11 SUGEY STUART S 02/02 Released w/o Limitations [facility] H M04A [facility]) [facility] M04A [facility] One) OUTPATIENT [id number] Persist ent fever at/abov e 100 SUGEY STUART S 11/21 Released w/o Limitations [facility] ([facility])(AM H M04A RHC One) [facility] ([facility]Abdirizak turpinon T-Con) TELE CONSULT [id number] MIRELLA Mobley 02/14 Released to Self Care [facility] ([facility]Sima rouse T-Con) [facility] ([facility]AMH M04D RHC Fou) OUTPATIENT [id number] PE///CY S MOY QUIJANO 03/22 Released w/o Limitations [facility]AM H M04D RHC Fou) [facility] [place] OUTPATIENT [id number] cough LUDA MENESES 09/04 Released w/o Limitations [facility] [place] [facility] [place] OUTPATIENT [id number] anxiety /adhd concern LUDA MENESES 09/27 Released w/o Limitations [facility] [place] [facility] [place] OUTPATIENT [id number] Notes Entered by: CARLEE SANTIAGO 01 May 2014 0959 ------- ------- ------- ------- -- Routine PRINCESS FERRO 05/01 Released w/o Limitations [facility] [place] [facility] [place] TELE CONSULT [id number] Notes Entered by: Edgar VILLASENOR 08 May 2014 1003 ------- ------- ------- ------- -- referra MAEVE Ramos 05/08 [facility] [place] [facility] [place] TELE CONSULT [id number] Notes Entered by: DIMPLE LEONE 13 May 2014 0856 ------- ------- ------- ------- -- Pt need ref MAEVE OLSON 05/13 [facility] [place] [facility] [place]) [place] [id number] 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 EVIE STEVENSON 06/24 Released w/o Limitations [facility] [place] [facility] [place] OUT[place]IENT [id number] fever,c ough LUDA MENESES L 09/24 Released w/o Limitations [facility] [place] [facility] [place] OUTPATIENT [id number] cys physica l concern s LUDA MENESES L 01/05 Released w/o Limitations [facility] [place] [facility] [place] OUTPATIENT [id number] Fever LUDA MENESES L 02/06 Released w/o Limitations [facility] [place] [facility] [facility] [place] M01[place] T[place] OUTPATIENT [id number] school/ sports/ camp DAJUANROCHELLE L 03/04 Released w/o Limitations [facility] [place]Opt[place]) OUTPATIENT [id number] annual eye exam JEROMY COTO 07/01 Released w/o Limitations [place] OUTPATIENT [id number] Ear ache, possibl e ear infecti on MARIYA ANDERSON 01/26 Released w/o Limitations [place] OUTPATIENT [id number] annual eye exam SHERRIE PEARSON 05/25 Released w/o Limitations [place] OUTPATIENT [id number] IGA deficie ncy screen KASIA MURPHY 06/16 Released w/o Limitations [place] OUTPATIENT [id number] Possibl e UTI MARIYA ANDERSON 04/09 Released w/o Limitations [place] OUTPATIENT [id number] Follow up UTI MARIYA ANDERSON 05/08 Released w/o Limitations [place] OUTPATIENT [id number] Annual Eye Exam - Glasses SHERRIE PEARSON 06/07 Released w/o Limitations [place] OUTPATIENT [id number] follow- up for urinary problem s MARIYA ANDERSON 06/22 Released w/o Limitations [place] OUTPATIENT [id number] 1 urinary inconti nence follow- up, would like a referra MARIYA Mccoy 08/21 Released w/o Limitations [place] OUTPATIENT [id number] 3 poss upper respirt ory infecti on KASIA MURPHY 11/09 Released w/o Limitations [place] OUTPATIENT [id number] 5 pcs- MARIYA Patton 12/14 Released w/o Limitations [place] TELE CONSULT [id number] Notes Entered by: RAFAEL DESHPANDE 19 Dec 2018 1700 ------- ------- ------- ------- -- Note sent via [employer] CB #[phone] RICHARD ANDERSONEMILY King 12/19 [place] [place] [place] [place] OUTPATIENT [id number] Notes Entered by: AJIT RODRIGUEZ 01 Jan 2019 1021 ------- ------- ------- ------- -- AJIT Woodson 01/01 Released w/o Limitations [place]([facility] M01[place] Red Tm[place] M01B Integr[place] OUTPATIENT [id number] 1 medicat ion MOY Ramos 04/08 Released w/o Limitations [place] M01B Integr[place] Procedures Combined list of: 1) Procedures from Department of Veterans Affairs facilities going back up to thelast 18 months, not all VA non-surgical procedures are included; 2) All procedures from the Department of Defense facilities. Procedure Procedure Type Code Date Perfomer Comments Sourc e No data available for this section Ambulato ry Pharmacy Influenza Split Virus Vaccine 0.5mL Dosage Intramuscular 08/31 PRINCESS FERRO Immunization Administration By Injection, One Vaccine Immunization Administration By Injection, One Vaccine 88241 08/31 PRINCESS FERRO Hep A Vac Ped/Adol Dosage (Intramusc Use) 2 Dose Schedule Hep A Vac Ped/Adol Dosage (Intramusc Use) 2 Dose Schedule 86338 02/22 PRINCESS FERRO [facility] Immunization Administration By Injection, One Vaccine Immunization Administration By Injection, One Vaccine 64046 02/22 PRINCESS FERRO [facility] Immunization Administration By Injection, One Vaccine Immunization Administration By Injection, One Vaccine 52458 08/23 PRINCESS FERRO [facility] Hep A Vac Ped/Adol Dosage (Intramusc Use) 2 Dose Schedule Hep A Vac Ped/Adol Dosage (Intramusc Use) 2 Dose Schedule 33002 08/23 PRINCESS FERRO [facility] Psychotherapy Individual Approximately 60 Minutes Psychotherapy Individual Approximately 60 Minutes 18029 03/11 INES CAMERON [facility] Psychotherapy Indiv Interactive Approx 30 Min W/ Medical Eval & Management Psychotherapy Indiv Interactive Approx 30 Min W/ Medical Eval & Management 87511 02/14 REGINALD DIAS [facility] Psychotherapy Interactive Complexity Psychotherapy Interactive Complexity 61313 02/06 INES CAMERON [facility] Psychotherapy Individual Approximately 60 Minutes Psychotherapy Individual Approximately 60 Minutes 61677 02/06 INES CAMERON [facility] Psychotherapy Individual Approximately 60 Minutes Psychotherapy Individual Approximately 60 Minutes 63295 01/18 INES CAMERON [facility] Health And Behav A e mt Each 15 Min Initial A e ment 01/01 AJIT YO [facility] Psychotherapy Indiv Interactive Approx 30 Min W/ Medical Eval & Management Psychotherapy Indiv Interactive Approx 30 Min W/ Medical Eval & Management 57600 12/21 REGINALD DIAS [facility] Human Papilloma Virus Vaccine, Nonavalent Human Papilloma Virus Vaccine, Nonavalent 97623 12/17 MARIYA ANDERSON HPV9; Series #: 1; .5 mL; IM; Left Arm; [facility]: [employer]; Lot: [id number]; VIS given (Tere: 08/26/2016). [facility] Immunization Administration By Injection, One Vaccine Immunization Administration By Injection, One Vaccine 86526 12/17 MARIYA ANDERSON Name & verified, allergies & medications reviewed, no contraindications for vaccine ordered, immunizations administered as ordered, tolerated well, refer to [facility]/[id number] for [facility] info & expiration date. VIS given. Pt remained in waiting room for 15 minutes after vaccine. No reaction noted. DoD Immunization Administration By Injection, Each Additional Vaccine Immunization Administration By Injection, Each Additional Vaccine 29069 12/17 EDWARDLEXIEMARIYA Fernando [facility] Meningococcal Polysaccharide Diphtheria Toxoid Conjugate Vaccine 12/17 MONICA MARIYA King Meningococcal MCV4P; Series #: 2; .5 mL; IM; Right Arm; Mfg: [employer]; Lot: [id number]; VIS given (Tere: 12/24/2015). DoD Psychotherapy For Crisis Intervention Each Additional 30 Minutes Psychotherapy For Crisis Intervention Each Additional 30 Minutes 93008 12/10 INES CAMERON DoD Psychotherapy Interactive Complexity Psychotherapy Interactive Complexity 00755 12/10 INES CAMERON DoD Psychotherapy Individual Approximately 60 Minutes Psychotherapy Individual Approximately 60 Minutes 71651 12/10 INES CAMERON DoD Psychotherapy Individual Approximately 60 Minutes Psychotherapy Individual Approximately 60 Minutes 86457 11/09 INES CAMERON DoD Psychotherapy Individual Approximately 60 Minutes Psychotherapy Individual Approximately 60 Minutes 39107 10/19 INES CAMERON DoD Psychotherapy Interactive Complexity Psychotherapy Interactive Complexity 78784 09/26 INES CAMERON Psychotherapy For Crisis Intervention First 60 Minutes Psychotherapy For Crisis Intervention First 60 Minutes 89035 09/26 INES CAMERON DoD Psychotherapy Individual Approximately 60 Minutes Psychotherapy Individual Approximately 60 Minutes 00477 09/14 INES CAMERON [facility] Psychotherapy Indiv Interactive Approx 45 Min W/ Medical Eval & Management Psychotherapy Indiv Interactive Approx 45 Min W/ Medical Eval & Management 06383 08/13 REGINALD DIAS [facility] Psychotherapy Individual Approximately 60 Minutes Psychotherapy Individual Approximately 60 Minutes 16860 08/03 INES CAMERON Psychotherapy For Crisis Intervention Each Additional 30 Minutes Psychotherapy For Crisis Intervention Each Additional 30 Minutes 99285 07/18 INES CAMERON DoD Psychotherapy Individual Approximately 60 Minutes Psychotherapy Individual Approximately 60 Minutes 80398 07/18 INES CAMERON DoD Psychotherapy Interactive Complexity Psychotherapy Interactive Complexity 65873 06/15 INES CAMERON DoD Psychotherapy Individual Approximately 60 Minutes Psychotherapy Individual Approximately 60 Minutes 06976 06/15 INES CAMERON Ophthalmological Prior Patient Start Comprehensive Care Ophthalmological Prior Patient Start Comprehensive [facility] [place] [address] 06/07 SHERRIE PEARSON DoD Determination Of Refractive State Determination Of Refractive State [id number] SHERRIE PEARSON DoD Psychotherapy Individual Approximately 60 Minutes Psychotherapy Individual Approximately 60 Minutes 44137 06/03 LARINES ARCHER C DoD Psychotherapy Interactive Complexity Psychotherapy Interactive Complexity 70809 05/07 INES CAMERON C DoD Psychotherapy Individual Approximately 60 Minutes Psychotherapy Individual Approximately 60 Minutes 15104 05/07 LARINES ARCHER C DoD Psychotherapy Indiv Interactive Approx 30 Min W/ Medical Eval & Management Psychotherapy Indiv Interactive Approx 30 Min W/ Medical Eval & Management 30233 05/02 REGINALD DIAS DoD Psychotherapy Individual Approximately 60 Minutes Psychotherapy Individual Approximately 60 Minutes 41426 04/30 INES CAMERON DoD Psychotherapy Individual Approximately 60 Minutes Psychotherapy Individual Approximately 60 Minutes 67844 04/23 INES CAMERON C DoD Psychotherapy Interactive Complexity Psychotherapy Interactive Complexity 51374 04/11 INES CAMERON DoD Psychotherapy Individual Approximately 60 Minutes Psychotherapy Individual Approximately 60 Minutes 12021 04/11 KAITLYNN [place]ON[place]LE C DoD Psychotherapy Indiv Interactive Approx 45 Min W/ Medical Eval & Management Psychotherapy Indiv Interactive Approx 45 Min W/ Medical Eval & Management 38556 03/13 REGINALD DIAS Psychotherapy Individual Approximately 60 Minutes Psychotherapy Individual Approximately 60 Minutes 53250 03/02 INES CAMERON C DoD Psychotherapy Interactive Complexity Psychotherapy Interactive Complexity 31820 02/07 INES CAMERON C DoD Psychotherapy Individual Approximately 60 Minutes Psychotherapy Individual Approximately 60 Minutes 24572 02/07 KAITLYNN [place] C DoD Psychotherapy Interactive Complexity Psychotherapy Interactive Complexity 65829 01/26 [place]AITLYNN [place] C DoD Psychotherapy Individual Approximately 60 Minutes Psychotherapy Individual Approximately 60 Minutes 59032 01/26 LARKAITLYNN AR[place] C DoD Psychotherapy Indiv Interactive Approx 45 Min W/ Medical Eval & Management Psychotherapy Indiv Interactive Approx 45 Min W/ Medical Eval & Management 90273 01/17 REGINALD DIAS Psychotherapy Indiv Interactive Approx 30 Min W/ Medical Eval & Management Psychotherapy Indiv Interactive Approx 30 Min W/ Medical Eval & Management 50271 12/25 ARUN, REGINALD M DoD Psychotherapy Individual Approximately 60 Minutes Psychotherapy Individual Approximately 60 Minutes 81919 12/21 INES CAMERON DoD Psychotherapy Interactive Complexity Psychotherapy Interactive Complexity 49986 12/08 INES CAMERON DoD Psychotherapy Individual Approximately 60 Minutes Psychotherapy Individual Approximately 60 Minutes 81785 12/08 INES CAMERON Psychotherapy Interactive Complexity Psychotherapy Interactive Complexity 23795 11/24 INES CAMERON DoD Psychotherapy Individual Approximately 60 Minutes Psychotherapy Individual Approximately 60 Minutes 95855 11/24 INES CAMERON Psychiatric Diagnostic Evaluation With Medical Evaluation And Management Psychiatric Diagnostic Evaluation With Medical Evaluation And Management 36301 11/17 ARUN, REGINALD M DoD Psychotherapy Individual Approximately 60 Minutes Psychotherapy Individual Approximately 60 Minutes 52317 11/09 INES CAMERON DoD Psychotherapy Individual Approximately 60 Minutes Psychotherapy Individual Approximately 60 Minutes 94902 10/20 INES CAMERON Ophthalmological Prior Patient Start Comprehensive Care Ophthalmological Prior Patient Start Comprehensive Care 58899 05/25 SHERRIE PEARSON Determination Of Refractive State Determination Of Refractive State 07706 05/25 SHERRIE PEARSON Scanning Computerized Ophthalmic Diagnostic Imaging Optic Nerve Scanning Computerized Ophthalmic Diagnostic Imaging Optic Nerve 98755 05/25 SHERRIE PEARSON Psychotherapy Individual Approximately 60 Minutes Psychotherapy Individual Approximately 60 Minutes 27542 02/08 INES CAMERON Cerumen Removal Left Ear Irrigation Incomplete Cerumen Removal Left Ear Irrigation Incomplete 89904 01/26 MARIYA ANDERSON Fernando Left Ear Irrigation was done to remove wax from her left ear. DoD Cerumen Removal Left Ear Curette Incomplete Cerumen Removal Left Ear Curette Incomplete 16451 01/26 MARIYA ANDERSON Attempted to remove moist cerumen from canal to be able to view TM. After several attempts there was still cerumen blocking my view. PT's Ear was washed and wax was removed with the elephant ear wash. DoD Psychotherapy Interactive Complexity Psychotherapy Interactive Complexity 23749 12/13 INES CAMERON DoD Psychotherapy Individual Approximately 60 Minutes Psychotherapy Individual Approximately 60 Minutes 01988 12/13 INES CAMERON DoD Psychotherapy Individual Approximately 60 Minutes Psychotherapy Individual Approximately 60 Minutes 87612 12/03 INES CAMERON DoD Psychotherapy Interactive Complexity Psychotherapy Interactive Complexity 93561 11/14 INES CAMERON C DoD Psychotherapy Individual Approximately 60 Minutes Psychotherapy Individual Approximately 60 Minutes 24859 11/14 INES CAMERON C DoD Psychotherapy Interactive Complexity Psychotherapy Interactive Complexity 91991 10/25 LARINES ARCHER C DoD Psychotherapy Individual Approximately 60 Minutes Psychotherapy Individual Approximately 60 Minutes 82441 10/25 INES CAMERON C DoD Psychotherapy Interactive Complexity Psychotherapy Interactive Complexity 97202 09/30 INES CAMERON C DoD Psychotherapy Individual Approximately 60 Minutes 09/30 LARINES ARCHER C DoD Psychotherapy Interactive Complexity Psychotherapy Interactive Complexity 34695 09/08 INES CAMERON C DoD Psychotherapy Individual Approximately 60 Minutes 09/08 LARINES ARCHER C DoD Psychotherapy Interactive Complexity Psychotherapy Interactive Complexity 03096 08/24 INES CAMERON C DoD Psychotherapy Individual Approximately 60 Minutes 08/24 INES CAMERON C DoD Psychotherapy Individual Approximately 60 Minutes 08/16 INES CAMERON C DoD Psychotherapy Individual Approximately 60 Minutes 07/22 INES CAMERON C DoD Psychotherapy Individual Approximately 60 Minutes 07/17 INES CAMERON C DoD Psychiatric Diagnostic Evaluation Initial Psychiatric Diagnostic Evaluation Initial 66600 07/08 INES CAMERON C Daisy Scanning Computerized Ophthalmic Diagnostic Imaging Optic Nerve Scanning Computerized Ophthalmic Diagnostic Imaging Optic Nerve 79778 07/01 JEROMY COTO Determination Of Refractive State Determination Of Refractive State 00968 07/01 JEROMY COTO Ophthalmological New Patient Start Comprehensive Care Ophthalmological New Patient Start Comprehensive Care 79899 07/01 JEROMY COTO Corneal Pachymetry Both Eyes Corneal Pachymetry Both Eyes 96877 06/24 EVIE ANTHONY Scanning Computerized Ophthalmic Diagnostic Imaging Optic Nerve Scanning Computerized Ophthalmic Diagnostic Imaging Optic Nerve 39714 06/24 EVIE ANTHONY Ophthalmological New Patient Start Comprehensive Care Ophthalmological New Patient Start Comprehensive Care 40339 06/24 EVIE ANTHONY Meningococcal (A, C, Y, W-135) Oligosacch Diphtheria Toxoid Conj Vacc 05/01 PRINCESS FERRO Meningococcal A,C,Y,W-135 Diphtheria Conj; Series #: 1; .5 mL; IM; Left Arm; Mfg: [employer]; Lot: [id number]; VIS given (Tere: 07/08/11). [facility] Tdap Vaccine Tdap Vaccine 10718 05/01 PRINCESS FERRO Tdap; Series #: 1; .5 mL; IM; Right Arm; Mfg: [employer]; Lot: [id number]; VIS given (Tere: 02/10/13). DoD Immunization Administration By Injection, One Vaccine Immunization Administration By Injection, One Vaccine 83137 05/01 PRINCESS FERRO IM Medication Administration: Patient Identification verified using Full Name and . DoD Immunization Administration By Injection, Each Additional Vaccine Immunization Administration By Injection, Each Additional Vaccine 94455 05/01 PRINCESS FERRO [facility] Screening Test Of Visual Acuity, Quantitative, Bilateral Screening Test Of Visual Acuity, Quantitative, Bilateral 56541 03/22 MOY QUIJANO [facility] Non-Physician Phone Call To Patient/Provider Brief (5-10min) Non-Physician Phone Call To Patient/Provider Brief (5-10min) 34918 02/14 MIRELLA CLARK [facility] Screening Test Of Visual Acuity, Quantitative, Bilateral Screening Test Of Visual Acuity, Quantitative, Bilateral 78486 02/02 SUGEY TSUART right 20/25-cirrected left 20/20-corrected both 20/20-corrected [facility] Screening Test Of Visual Acuity, Quantitative, Bilateral Screening Test Of Visual Acuity, Quantitative, Bilateral 11684 01/28 CHIARA ESPINOZA [facility] Influenza Virus Vaccine Intranasal Live Attenuated 08/29 MEKA CRUZ [facility] IV Infusion For Hydration Each Additional Hour 05/29 GAURANG OQUENDO Intravenous Catheter Placement Intravenous Catheter Placement 77871 05/29 GAURANG OQUENDO Parenteral Fluids IV Infusion 05/29 GAURANG OQUENDO Pulse Oximetry Pulse Oximetry 87738 12/05 MARK ARMENTA [facility] Tympanometry Tympanometry 08704 04/12 UVALDO CLIFTON Acoustic Reflex Testing 04/12 UVALDO CLIFTON Audiometry Speech Threshold Audiometry Speech Threshold 61188 04/12 UVALDO CLIFTON Threshold Audiogram (Pure Tone) Threshold Audiogram (Pure Tone) 92707 04/12 UVALDO CLIFTON [facility] Human Papilloma Virus Vaccine, Nonavalent Human Papilloma Virus Vaccine, Nonavalent 54596 MAVEE OLSON HPV9; Series #: 2; 0.5 mL; IM; Left Arm; Mfg: [employer]; Lot: [id number]; VIS given (Tere: 07/24/2019). DoD Immunization Administration By Injection, One Vaccine Immunization Administration By Injection, One Vaccine 75724 MAEVE OLSON [facility] INFLUENZA VIRUS VACCINE, TRIVALENT, LIVE (LAIV3), FOR INTRANASAL USE 08/29 [facility] INTRAVENOUS INFUSION, HYDRATION; EACH ADDITIONAL HOUR (LIST SEPARATELY IN ADDITION TO CODE FOR PRIMARY PROCEDURE) 05/29 [facility] NONINVASIVE EAR OR PULSE OXIMETRY FOR OXYGEN SATURATION; SINGLE DETERMINATION 12/05 [facility] ACOUSTIC REFLEX TESTING, THRESHOLD 04/12 [facility] SCREENING TEST OF VISUAL ACUITY, QUANTITATIVE, BILATERAL 03/22 [facility] TELE ASSESS & MGT SRV PROV QUAL NONPHYS HLTH CARE PRO TO EST PAT,PARENT,GUARD NOT ORIG REL ASSESS & MGT SRV PROV W/IN PREV 7 DAYS NOR LEAD ASSESS & MGT SRV/PX W/IN NXT 24 HR/SOON APT;5-10 MIN MED DIS 02/14 [facility] SCREENING TEST OF VISUAL ACUITY, QUANTITATIVE, BILATERAL 02/02 [facility] SCREENING TEST OF VISUAL ACUITY, QUANTITATIVE, BILATERAL 01/28 [facility] HUMAN PAPILLOMAVIRUS VACCINE TYPES 6, 11, 16, 18, 31, 33, 45, 52, 58, NONAVALENT (9VHPV), 2 OR 3 DOSE SCHEDULE, FOR INTRAMUSCULAR USE 04/08 [facility] OPHTHALMIC ULTRASOUND, ECHOGRAPHY, DIAGNOSTIC; CORNEAL PACHYMETRY, UNILATERAL OR BILATERAL (DETERMINATION OF CORNEAL THICKNESS) 06/24 DoD IMMUNIZATION ADMINISTRATION (INCLUDES PERCUTANEOUS, INTRADERMAL, SUBCUTANEOUS, OR INTRAMUSCULAR INJECTIONS); EACH ADDITIONAL VACCINE (SINGLE OR COMBINATION VACCINE/TOXOID) 05/01 DoD IMMUNIZATION ADMINISTRATION (INCLUDES PERCUTANEOUS, INTRADERMAL, SUBCUTANEOUS, OR INTRAMUSCULAR INJECTIONS); 1 VACCINE (SINGLE OR COMBINATION VACCINE/TOXOID) 08/31 DoD IMMUNIZATION ADMINISTRATION (INCLUDES PERCUTANEOUS, INTRADERMAL, SUBCUTANEOUS, OR INTRAMUSCULAR INJECTIONS); 1 VACCINE (SINGLE OR COMBINATION VACCINE/TOXOID) 02/22 DoD IMMUNIZATION ADMINISTRATION (INCLUDES PERCUTANEOUS, INTRADERMAL, SUBCUTANEOUS, OR INTRAMUSCULAR INJECTIONS); 1 VACCINE (SINGLE OR COMBINATION VACCINE/TOXOID) 08/23 DoD BRIEF EMOTIONAL/BEHAVIORA L ASSESSMENT (EG, DEPRESSION INVENTORY, ATTENTION-DEFICIT/H YPERACTIVITY DISORDER [ADHD] SCALE), WITH SCORING AND DOCUMENTATION, PER STANDARDIZED INSTRUMENT 03/08 DoD PSYCHOTHERAPY, 30 MINUTES WITH PATIENT WHEN PERFORMED WITH AN EVALUATION AND MANAGEMENT SERVICE (LIST SEPARATELY IN ADDITION TO THE CODE FOR PRIMARY PROCEDURE) 02/14 DoD BRIEF EMOTIONAL/BEHAVIORA L ASSESSMENT (EG, DEPRESSION INVENTORY, ATTENTION-DEFICIT/H YPERACTIVITY DISORDER [ADHD] SCALE), WITH SCORING AND DOCUMENTATION, PER STANDARDIZED INSTRUMENT 02/05 DoD PSYCHOTHERAPY, 60 MINUTES WITH PATIENT 01/18 DoD HEALTH&BEHAV ASSESSMENT (EG, HEALTH-FOC CLINICAL INTERVIEW, BEHAVIORAL OBSERVATIONS, PSYCHOPHYSICOLOGICA L MONITOR, HEALTH-ORIENT QUESTIONNAIRES), EA 15 MIN [id number] W THE PATIENT; INIT ASSESSMENT 01/01 DoD PSYCHOTHERAPY, 30 MINUTES WITH PATIENT WHEN PERFORMED WITH AN EVALUATION AND MANAGEMENT SERVICE (LIST SEPARATELY IN ADDITION TO THE CODE FOR PRIMARY PROCEDURE) 12/18 [facility] MENINGOCOCCAL CONJUGATE VACCINE, SEROGROUPS A, C, W, Y, QUADRIVALENT, DIPHTHERIA TOXOID CARRIER (MENACWY-D) OR [id number] CARRIER (MENACWY-CRM), FOR INTRAMUSCULAR USE 12/17 DoD INTERACTIVE COMPLEXITY (LIST SEPARATELY IN ADDITION TO THE CODE FOR PRIMARY PROCEDURE) 12/07 DoD PSYCHOTHERAPY, 60 MINUTES WITH PATIENT 11/08 DoD PSYCHOTHERAPY, 60 MINUTES WITH PATIENT 10/18 DoD FAMILY PSYCHOTHERAPY (CONJOINT PSYCHOTHERAPY) (WITH PATIENT PRESENT), 50 MINUTES 09/24 DoD PSYCHOTHERAPY, 60 MINUTES WITH PATIENT 09/12 DoD PSYCHOTHERAPY, 45 MINUTES WITH PATIENT WHEN PERFORMED WITH AN EVALUATION AND MANAGEMENT SERVICE (LIST SEPARATELY IN ADDITION TO THE CODE FOR PRIMARY PROCEDURE) 08/13 DoD PSYCHOTHERAPY, 60 MINUTES WITH PATIENT 08/03 DoD PSYCHOTHERAPY, 60 MINUTES WITH PATIENT 07/16 DoD INTERACTIVE COMPLEXITY (LIST SEPARATELY IN ADDITION TO THE CODE FOR PRIMARY PROCEDURE) 06/14 DoD DETERMINATION OF REFRACTIVE STATE 06/07 DoD PSYCHOTHERAPY, 60 MINUTES WITH PATIENT 05/31 DoD BRIEF EMOTIONAL/BEHAVIORA L ASSESSMENT (EG, DEPRESSION INVENTORY, ATTENTION-DEFICIT/H YPERACTIVITY DISORDER [ADHD] SCALE), WITH SCORING AND DOCUMENTATION, PER STANDARDIZED INSTRUMENT 05/07 DoD PSYCHOTHERAPY, 30 MINUTES WITH PATIENT WHEN PERFORMED WITH AN EVALUATION AND MANAGEMENT SERVICE (LIST SEPARATELY IN ADDITION TO THE CODE FOR PRIMARY PROCEDURE) 05/02 DoD PSYCHOTHERAPY, 60 MINUTES WITH PATIENT 04/30 DoD PSYCHOTHERAPY, 60 MINUTES WITH PATIENT 04/23 DoD INTERACTIVE COMPLEXITY (LIST SEPARATELY IN ADDITION TO THE CODE FOR PRIMARY PROCEDURE) 04/09 DoD PSYCHOTHERAPY, 45 MINUTES WITH PATIENT WHEN PERFORMED WITH AN EVALUATION AND MANAGEMENT SERVICE (LIST SEPARATELY IN ADDITION TO THE CODE FOR PRIMARY PROCEDURE) 03/13 DoD BRIEF EMOTIONAL/BEHAVIORA L ASSESSMENT (EG, DEPRESSION INVENTORY, ATTENTION-DEFICIT/H YPERACTIVITY DISORDER [ADHD] SCALE), WITH SCORING AND DOCUMENTATION, PER STANDARDIZED INSTRUMENT 03/01 DoD BRIEF EMOTIONAL/BEHAVIORA L ASSESSMENT (EG, DEPRESSION INVENTORY, ATTENTION-DEFICIT/H YPERACTIVITY DISORDER [ADHD] SCALE), WITH SCORING AND DOCUMENTATION, PER STANDARDIZED INSTRUMENT 02/06 DoD INTERACTIVE COMPLEXITY (LIST SEPARATELY IN ADDITION TO THE CODE FOR PRIMARY PROCEDURE) 01/24 DoD PSYCHOTHERAPY, 30 MINUTES WITH PATIENT WHEN PERFORMED WITH AN EVALUATION AND MANAGEMENT SERVICE (LIST SEPARATELY IN ADDITION TO THE CODE FOR PRIMARY PROCEDURE) 01/16 DoD PSYCHOTHERAPY, 30 MINUTES WITH PATIENT WHEN PERFORMED WITH AN EVALUATION AND MANAGEMENT SERVICE (LIST SEPARATELY IN ADDITION TO THE CODE FOR PRIMARY PROCEDURE) 12/25 DoD PSYCHOTHERAPY, 60 MINUTES WITH PATIENT 12/20 DoD BRIEF EMOTIONAL/BEHAVIORA L ASSESSMENT (EG, DEPRESSION INVENTORY, ATTENTION-DEFICIT/H YPERACTIVITY DISORDER [ADHD] SCALE), WITH SCORING AND DOCUMENTATION, PER STANDARDIZED INSTRUMENT 12/07 DoD FAMILY PSYCHOTHERAPY (CONJOINT PSYCHOTHERAPY) (WITH PATIENT PRESENT), 50 MINUTES 11/23 DoD PSYCHIATRIC DIAGNOSTIC EVALUATION WITH MEDICAL SERVICES 11/14 DoD PSYCHOTHERAPY, 60 MINUTES WITH PATIENT 11/09 DoD PSYCHOTHERAPY, 60 MINUTES WITH PATIENT 10/20 DoD DETERMINATION OF REFRACTIVE STATE 05/25 DoD BRIEF EMOTIONAL/BEHAVIORA L ASSESSMENT (EG, DEPRESSION INVENTORY, ATTENTION-DEFICIT/H YPERACTIVITY DISORDER [ADHD] SCALE), WITH SCORING AND DOCUMENTATION, PER STANDARDIZED INSTRUMENT 02/07 DoD REMOVAL IMPACTED CERUMEN USING IRRIGATION/LAVAGE, UNILATERAL 01/26 DoD BRIEF EMOTIONAL/BEHAVIORA L ASSESSMENT (EG, DEPRESSION INVENTORY, ATTENTION-DEFICIT/H YPERACTIVITY DISORDER [ADHD] SCALE), WITH SCORING AND DOCUMENTATION, PER STANDARDIZED INSTRUMENT 12/13 DoD PSYCHOTHERAPY, 60 MINUTES WITH PATIENT 12/01 DoD INTERACTIVE COMPLEXITY (LIST SEPARATELY IN ADDITION TO THE CODE FOR PRIMARY PROCEDURE) 11/11 DoD BRIEF EMOTIONAL/BEHAVIORA L ASSESSMENT (EG, DEPRESSION INVENTORY, ATTENTION-DEFICIT/H YPERACTIVITY DISORDER [ADHD] SCALE), WITH SCORING AND DOCUMENTATION, PER STANDARDIZED INSTRUMENT 10/24 DoD BRIEF EMOTIONAL/BEHAVIORA L ASSESSMENT (EG, DEPRESSION INVENTORY, ATTENTION-DEFICIT/H YPERACTIVITY DISORDER [ADHD] SCALE), WITH SCORING AND DOCUMENTATION, PER STANDARDIZED INSTRUMENT 09/29 DoD INTERACTIVE COMPLEXITY (LIST SEPARATELY IN ADDITION TO THE CODE FOR PRIMARY PROCEDURE) 09/07 DoD PSYCHOTHERAPY, 60 MINUTES WITH PATIENT 08/24 DoD BRIEF EMOTIONAL/BEHAVIORA L ASSESSMENT (EG, DEPRESSION INVENTORY, ATTENTION-DEFICIT/H YPERACTIVITY DISORDER [ADHD] SCALE), WITH SCORING AND DOCUMENTATION, PER STANDARDIZED INSTRUMENT 08/16 DoD PSYCHOTHERAPY, 60 MINUTES WITH PATIENT 07/22 DoD BRIEF EMOTIONAL/BEHAVIORA L ASSESSMENT (EG, DEPRESSION INVENTORY, ATTENTION-DEFICIT/H YPERACTIVITY DISORDER [ADHD] SCALE), WITH SCORING AND DOCUMENTATION, PER STANDARDIZED INSTRUMENT 07/15 DoD PSYCHIATRIC DIAGNOSTIC EVALUATION 07/07 [facility] DETERMINATION OF REFRACTIVE STATE 07/01 DoD Social History Combined list of available smoking, tobacco, and other social history from Department of Defense and Veterans Affairs facilities. Social History Type Response Date Comment Sourc e This section is an empty social history section. DoD Assessment and Plan Combined list of future care activities from Department of Defense and Veterans Affairs facilities (e.g., assessment and plan notes, appointments, orders, and referrals). Additional future care activities may be listed in the Plan of Care section. Result Assessment and Plan Date Source Assessment and Plan No data available for this section 10/18/2023 Ambulatory Pharmacy Functional Status Combined list of recent functional and cognitive assessments recorded at Department [facility] [employer] and [employer] (VA).VA Functional [place] Measurement (FIM) Scale: 1 = Total Assistance (Subject = 0% +), 2 = Maximal Assistance (Subject = 25% +), 3 = Moderate Assistance (Subject = 50% +), 4 = Minimal Assistance (Subject = 75% +), 5 = Supervision, 6 = Modified [place] (Device), 7 = Complete [place] (Timely, Safely). Assessment Date/Time Source Assessment Type Assessment Skill Assessment Score Assessment Details No data available for this section
--- NOTE | 2023-10-18 16:10 | ED.NURSE ---
Pt mother called requesting update, pt gave verbal okay to release any/all information about her care to her mother. Update provided.
[2023-10-18 16:23] LABS: Ur HCG Qualitative* Negative (Negative)
[2023-10-18 16:28] LABS: Amphetamine Screen Urine Negative (Negative); Barbiturate Screen Urine Negative (Negative); Benzodiazepines Screen Urine Negative (Negative); Cannabinoid Screen Urine Negative (Negative); Cocaine Screen Urine Negative (Negative); Methadone Screen Urine Negative (Negative); Methamphetamines Screen Urine Negative (Negative); Opiate Screen Urine Negative (Negative); Oxycodone Screen Urine Negative (Negative); Phencyclidine Screen Urine Negative (Negative); Tricyclic Antidepressant Urine Negative (Negative)
--- NOTE | 2023-10-18 17:45 | ED.NURSE ---
Pt reassessed by mortgage underwriter at this time. Pt is cooperative and willing to converse. Pt is A&Ox4 and calm. Pt states that she has these episodes of anxiety attacks and they usually subside after 1-2 hours. Pt states there was no particular trigger for her anxiety attack today, pt feels safe at her residence, pt denies any suicidal ideation, pt also denies any desire to harm others. Pt states she is agreeable to a blood draw for labs at this time. MD Schwartz updated.
--- NOTE | 2023-10-18 18:16 | ED.NURSE ---
Pt gave verbal consent to advertising writer to speak with Josiah at [facility] and give him an update on her condition and disposition. Josiah Barrera called and provided with update.
[2023-10-18 18:19] LABS: Basophils Absolute Auto 0.02 K/uL (0.00-0.30); Basophils Percent Auto 0.2 % (0.0-3.0); Eosinophils Absolute Auto 0.01 K/uL (0.00-0.50); Eosinophils Percent Auto 0.1 % (0.0-7.0); Hemoglobin* 13.6 gm/dL (12.0-16.0); Immature Granulocytes Abs Auto 0.01 K/uL (0.00-0.30); Immature Granulocytes Pct Auto 0.1 %; Lymphocytes Percent Auto 11.4 % (20-44); Mean Corpuscular HGB Conc 34 gm/dL (32-36); Mean Corpuscular Hemoglobin 30 pg (26-34); Mean Corpuscular Volume 87 fL (80-100); Monocytes Percent Auto 3.6 % (0.0-11.0); Neutrophils Percent Auto 84.6 % (42.0-72.0); Platelet Count* 296 K/uL (140-440); RDW Coefficient of Variation % 11.4 % (11.5-15.5); White Blood Count* 10.72 K/uL (4.50-11.00)
[2023-10-18 18:23] LABS: Slide Review Reflex No
[2023-10-18 18:34] LABS: Albumin* 3.9 g/dL (3.3-5.0); Chloride* 94 mmol/L (96-114)
[2023-10-18 18:35] LABS: Potassium* 3.6 mmol/L (3.6-5.1); Sodium* 131 mmol/L (135-149)
[2023-10-18 18:37] LABS: Anion Gap 16 mEq/L (7-15); Aspartate Amino Transferase* 43 U/L (12-35); Bilirubin Total* 0.5 mg/dL (0.1-1.5); Carbon Dioxide* 21 mmol/L (20-32); Creatinine* 0.2 mg/dL (0.5-1.5); Estimated Glomerular Filt Rate 171 ml/min; Total Protein* 7.1 g/dL (6.0-8.3)
[2023-10-18 18:38] LABS: Alanine Aminotransferase* 13 U/L (4-35); Alkaline Phosphatase* 176 U/L (40-150); Blood Urea Nitrogen* 16 mg/dL (5-24); Calcium* 9.2 mg/dL (8.4-10.6); Glucose* 78 mg/dL (60-115)
--- NOTE | 2023-10-18 19:25 | ED_ITS ---
HPI - General Adult General Date Seen: 10/18/23 Chief complaint: Psychiatric Problem/Disorder Stated complaint: Ill Time Seen by Provider: 10/18/23 14:31 History of Present Illness HPI narrative: History limited by patient's nonverbal status. This is a 23-year-old female. She is a student at [employer]. She is brought to the ER today by EMS. Report from paramedics is that she was apparently crying but nonverbal in the bathroom at her dorm. It is unclear what happened or if some a stressful event happened today. Apparently [employer] safety responded when she was screaming in her bathroom. She was unresponsive to [employer], who activated 911. Patient is leaning forward, hunched over in her wheelchair with her garcia pulled far over her head and down over her face. She is looking down at the floor. She is sniffling but not screaming. She is nonverbal. When I try to sit down with her to make eye contact I can see that she volitionally turns her head to make sure she avoids eye contact with me. She is not combative and allows the nurses to check her pulse ox and blood pressure. She is unable or un willing to respond to any questions. No apparent seizure activity. Skin on her fingers and hands appears to be pink and not diaphoretic. I initially encountered this patient in the ER triage room where she was dropped off by EMS. There were no other open rooms in the ER at that time. After my and initial assessment she was entirely nonverbal, I stepped out to deal with an important issue of patient care for another patient. Subsequently the patient was heard screaming and she tried to run from the triage room. She was running down the hallway and almost into another patient's room. She was stopped in the hallway by security. She sat down in the hallway next to the supply closet. She was again nonverbal and hunched over. She was not answering questions. She did at least look at me this time. At this time she was no longer running, nonviolent, and was sitting on the floor, we did not put her in restraints. I talked to her for several minutes. She was still a centrally not responding and nonverbal. I tried to get her to take my hand so I can help her up and moved to a chair but she was initially not cooperating. We were able to open up at room in ER room 5. Ultimately the patient did take my hand and we walked together, accompanied by nursing and security, down to her ER room. Once there she again became very anxious, agitated, sitting with her legs drawn up on the bed, with her back turned toward me and nursing staff. She was not answering questions or providing any information. She was not cooperative with repeat vital sign testing other than pulse ox briefly on her finger. Eventually we were able to get her to not her head. It seems though she would be willing to write answers, rather than speak them out loud. We provided her with a pen and paper. She wrote a sentence indicating that we should just let her go home. She was not really answering any other questions She was displaying signs of increasing anxiety. She was tremulous. She was still nonverbal, not answering other questions. I recommended to the patient that receiving medication, such as an anxiolytic, would be beneficial. She was refusing an increasingly obstinate/turning her back. She was displaying signs that she may be trending toward another outburst. I was concerned that she may try to flee from the hospital, and or run into another patient's room with her agitation. It was unclear if she was even oriented to place . I felt that there was an impending issue for patient safety for herself as well as for other patients. We did try to contact the patient's mother, by phone to get corroborating history. Mother indicates that the patient has had episodes like this dating back to high school. She calls them, ?meltdowns? and they happen ?from time to time?. There is no clear known trigger. Sometimes or triggered by stressful events, but not always. She has apparently had seen a counselor in high school but never received a formal diagnosis. She had been on Lexapro while in high school but stopped in college. She still been having these events and college. Her parents have been trying to set her up with online counseling and therapy, but had been unable to do so because their insurance is based in another state, and the patient is currently in school in [place]. Mother indicates that she has, she thinks, been seeing a counselor at [employer] and may have an appointment with a counselor this week. Recheck- Patient was still anxious, nonverbal, unwilling or unable to cooperate with history or exam. I gave the patient the option to take oral medications for relaxing or receive an intramuscular injection. She was unable to answer questions, either verbally or in writing. Nursing staff were present and were concerned about risk for escalating anxiety and agitation. We agree that it was best to medicate the patient before another outburst occurred. The patient was held briefly by nursing staff and received intramuscular injection of droperidol 2.5 mg and Versed 1 mg IM. She was agitated and scratched one of the nurses aides. After the meds the patient was angry and agitated initially. She tried to swing her fisted me but missed. She did angrily strike herself in her left thigh with her fist about 5 or 10 times. She was otherwise lying on her bed. Within about 5-10 minute she was calmer. When I recheck the patient later. She will is a but able to answer some questions. She says she just wants to go home is really not able to engage with me in any further history. Unclear if she has had a stressor at school today or lately. She does tell me she is not suicidal and-just let her go home. Related Data Previous Rx's Medication Instructions Recorded bupropion HCl 150 mg 24 hr tablet, 150 mg PO QAM #30 tabs 09/03/22 extended release (Wellbutrin XL) escitalopram oxalate 20 mg tablet 20 mg PO DAILY #30 tabs 09/03/22 (Lexapro) Allergies Allergy/AdvReac Type Severity Reaction Status Date / Time No Known Allergies Allergy Unknown Verified 08/07/22 16:37 [facility] Medical History (Updated 10/18/23 @ 20:26 by Tyler Schwartz MD) Panic attack ?F41.0 - Panic disorder [episodic paroxysmal anxiety] (ICD-10) Depression ?F32.A - Depression, unspecified (ICD-10) Anxiety ?F41.9 - Anxiety disorder, unspecified (ICD-10) Surgical History (Updated 08/08/22 @ 10:57 by Martha Clement MD) No history of previous surgery Family History (Updated 08/08/22 @ 10:58 by Martha Clement MD) Maternal Grandfather Liver cancer Paternal Grandfather Pancreatic cancer Depression Uncle Stroke, Onset Age: 45 Social History (Updated 08/08/22 @ 10:59 by ZENAIDA Xie Narrative: single, [employer] student, no kids does not drink alcohol exercises daily- walking, running non-smoker Smoking Status: Never smoker Do you use any of these nicotine containing products: None Second hand tobacco smoke exposure: No How often do you have a drink containing alcohol: never AUDIT-C Alcohol total score: 0 Non-prescribed substance use: denies use Exam Narrative: Exam Narrative: Constitutional: Appears well-developed and well-nourished. Awake and sitting up in a chair with her garcia pulled deeply over her face. Head and face are down toward the floor. Her body posture is curled up with her legs drawn up against her torso and her face directed away from me in her nurses. She seems to be sniffling is the as if she has recently been crying but is not actively crying or screaming in triage. Psych: Limited because patient is nonverbal and not answering any questions. Seems sad, poor eye contact. Possibly anxious. Repeat exam after medications: Constitutional: Sitting up in bed. More awake and alert now. At least able to speak sentences. Not providing much useful history. Says repetitively that she just wants to go home. HENT: Head: Atraumatic. Nose: Nose normal. Mouth/Throat: Oral mucosa is clear and moist. no trismus. Phonation no Eyes: Conjunctivae normal. EOM normal. Pupils equal, round, and reactive to light. No scleral icterus. Neck: Normal range of motion. Neck supple. No tracheal deviation present. Cardiovascular: Tachycardic, about 105 on pulse ox, regular rhythm. No gallop. No friction rub. No murmur heard. Symmetric radial artery pulses Pulmonary/Chest: Effort normal. No stridor. No respiratory distress. No wheezes. No rales. No rhonchi . Musculoskeletal: RUE: Normal range of motion. No tenderness. No deformity LUE: Normal range of motion. No tenderness. No deformity RLE: Normal range of motion. No edema. No tenderness. No deformity LLE: Normal range of motion. No edema. No tenderness. No deformity Lymph: No cervical adenopathy. Neurological: Alert and oriented to person, place, and time. Normal strength. CN II-VII intact. No sensory deficit. GCS eye subscore is 4. GCS verbal subscore is 5. GCS motor subscore is 6. Normal coordination Skin: Skin is warm and dry. No rash noted. No pallor. Normal capillary refill. Psychiatric: Limited. Initially flat affect and covered up face. Subsequently became agitated and behavior radically, running down the hallway of the ER and almost ran into another patient's room before she was stopped by security. ED she was still nonverbal and essentially uncooperative but at least walked herself from the floor down into her room. Once there became uncooperative again. She ultimately required IM meds to help reduce agitation and try to get her calm so that she could be assessed. She did not require four-point restraints. She after IM meds she became more verbal. She was still repetitively asking to go home and largely refusing any workup or option for therapy. Subsequently we were able to talk her into allowing lab so we can release look at the metabolic profile, blood counts, thyroid as an explanation for her tachycardia. However I suspect tachycardia is probably related to a untreated anxiety. Recheck subsequently she was at least willing to talk to a virtual DEC counselorOfelia Const: Vital Signs, click to edit/add: Vital Signs - 24 hr 10/18/23 14:30 10/18/23 15:25 10/18/23 15:28 Temperature 99.4 F Pulse Rate 103 H Pulse Rate [Pulse Oximeter] 120 H Respiratory Rate 20 Blood Pressure 101/59 L Blood Pressure [Ri ght Upper Arm] 113/74 Pulse Oximetry 99 98 96 Oxygen Delivery Me thod Room Air 10/18/23 15:29 10/18/23 15:30 10/18/23 15:30 Temperature Pulse Rate 98 94 Pulse Rate [Pulse Oximeter] Respiratory Rate 20 Blood Pressure Blood Pressure [Ri ght Upper Arm] Pulse Oximetry 95 97 Oxygen Delivery Me thod 10/18/23 15:31 10/18/23 15:45 10/18/23 15:45 Temperature Pulse Rate 96 104 H Pulse Rate [Pulse Oximeter] Respiratory Rate 20 Blood Pressure 97/60 Blood Pressure [Ri ght Upper Arm] Pulse Oximetry 96 98 Oxygen Delivery Me thod 10/18/23 15:46 10/18/23 16:00 10/18/23 16:01 Temperature Pulse Rate 111 H 116 H Pulse Rate [Pulse Oximeter] Respiratory Rate 16 Blood Pressure 92/54 L 108/72 Blood Pressure [Ri ght Upper Arm] Pulse Oximetry 99 100 Oxygen Delivery Me thod 10/18/23 16:02 10/18/23 16:15 10/18/23 16:17 Temperature Pulse Rate 109 H 102 H 110 H Pulse Rate [Pulse Oximeter] Respiratory Rate Blood Pressure 107/67 Blood Pressure [Ri ght Upper Arm] Pulse Oximetry 100 100 100 Oxygen Delivery Me thod 10/18/23 16:30 10/18/23 16:31 10/18/23 16:32 Temperature Pulse Rate 94 86 84 Pulse Rate [Pulse Oximeter] Respiratory Rate Blood Pressure 101/57 L Blood Pressure [Ri ght Upper Arm] Pulse Oximetry 100 99 100 Oxygen Delivery Me thod 10/18/23 17:44 10/18/23 17:45 Temperature 98.3 F Pulse Rate Pulse Rate [Pulse Oximeter] 120 H Respiratory Rate 16 Blood Pressure 110/82 Blood Pressure [Ri ght Upper Arm] Pulse Oximetry 97 Oxygen Delivery Me thod Room Air Course Course ED Course: Recheck-now more verbal. Discussed with the patient again. She is asking repetitively to go home. At this time she is much calmer, more conversant. She is able to understand where she is. She denies suicidal ideation. At this point I do not think she is holdable and certainly does not require medications for sedation or anxiolysis. She is not agitated any longer. I encouraged her to talk with DEC. My concern is that she is having spells like this at school that are affecting her ability to function in her dorm. For her part she is really minimizing the affect of these episodes and does not want to talk to deck. Ultimately she agrees. She also agrees to lab workup to look for possible explanations for her tachycardia. However, suspect possible underlying anxiety may be the cause Reevaluation(s) Reevaluation #1: Recheck-labs are back. CBC normal. Drug screen negative. negative. Unfortunately TSH was inadvertently omitted. TSH Added on. We had ordered a DEC screen. They had initially said that it would be until 10:00 p.m. before they get screened the patient. However they do have a screener available earlier. Patient is willing to talk to them. Our nurse, Osito, was able to make contact with the Josiah at [employer]. They will be able to follow-up with the patient tomorrow and make sure the arrange outpatient therapy and counseling through the school. Also the patient's father will flank tomorrow to check on her. Reevaluation #2: Patient is evaluated by [facility] [place]. Ofelia feels that she is safe for outpatient management. Ofelia is recommending outpatient resources however patient is largely declining any offer of help. Vital Signs Vital signs: Initial Vital Signs Temperature 99.4 F 10/18/23 14:30 Temperature Source Temporal Artery Scan 10/18/23 14:30 Pulse Rate 120 H 10/18/23 14:30 Respiratory Rate 20 10/18/23 14:30 Blood Pressure 113/74 10/18/23 14:30 Blood Pressure Mean 87 10/18/23 14:30 Blood Pressure Position Sitting 10/18/23 14:30 Pulse Oximetry 99 10/18/23 14:30 Oxygen Delivery Method Room Air 10/18/23 14:30 Vital Signs Temperature 99.4 F 10/18/23 14:30 Pulse Rate 120 H 10/18/23 14:30 Respiratory Rate 20 10/18/23 14:30 Blood Pressure 113/74 10/18/23 14:30 Pulse Oximetry 99 10/18/23 14:30 Oxygen Delivery Method Room Air 10/18/23 14:30 Temperature 98.3 F 10/18/23 17:45 Pulse Rate 120 H 10/18/23 17:45 Respiratory Rate 16 10/18/23 17:45 Blood Pressure 110/82 10/18/23 17:44 Pulse Oximetry 97 10/18/23 17:45 Oxygen Delivery Method Room Air 10/18/23 17:45 Medications Administered Medications: Discontinued Medications Generic Name Dose Route Start Last Admin Trade Name Freq PRN Reason Stop Dose Admin Droperidol 2.5 mg 10/18/23 14:56 10/18/23 15:05 Droperidol 2.5 Mg/Ml Inj IM 10/18/23 14:57 2.5 mg ONCE ONE Administration Droperidol 5 mg 10/18/23 15:33 10/18/23 19:30 Droperidol 2.5 Mg/Ml Inj IM 10/18/23 15:34 Not Given ONCE ONE Midazolam HCl 1 mg 10/18/23 14:56 10/18/23 15:05 Midazolam Hcl 1 Mg/Ml Inj IM 10/18/23 14:57 1 mg ONCE ONE Administration Medical Decision Making MDM Narrative Medical decision making narrative: This is a 23-year-old female brought to the ER today by EMS for a mental health crisis. She was initially incredibly withdrawn, guarded, nonverbal, and we were unable to get a good assessment. Initial differential for her condition would include panic attack, catatonia, psychosis, drug use or intoxication, possible assault, among others. Although she was initially very withdrawn and nonverbal, bordering on catatonic, when I left are alone in the triage room she tried to flee from the ER or run around the ER and almost into other patient's rooms. She was stopped by security but did not require restraints. We felt that she needed anxiolysis and sedation based on her initial presentation. She was unable to engage in verbal conversation. She was also not cooperative and not allowing us to give her oral medications. Ultimately we did administer IM meds. These were effective when she was much calmer. Subsequently she was able to be conversant. She was still very withdrawn and guarded when talking to me and minimizing her presenting symptoms. Laboratory workup she does not show any clear evidence for infection, electrolyte disturbance, alcohol or drug intoxication, complication, thyrotoxicosis, or other medical cause for her condition. She was seen by DEC. At this point they feel that she is safe for discharge. I agree. I think the patient would probably benefit from an inpatient psychiatric evaluation to get a better sense of what her underlying does know sees our and help come up with a better plan for medications and or coping skills. However at this point the patient is no longer withdrawn, nonverbal, screaming. She is not suicidal. She is able to verbalized her desire an intention to go home and her plans to follow-up with her pre-existing outpatient therapist. With additional history from mother, it turns out that she has actually been having spells like this intermittently since high school. Although I think she would benefit from an inpatient admission, after stabilization here in the ER, she no longer meets criteria for hold. Therefore we will discharge her home, per her wishes. Lab Data Labs: Lab Results 10/18/23 10/18/23 10/18/23 Range/Units 16:06 18:00 19:01 WBC 10.72 (4.50-11.00) K/uL RBC 4.60 (4.00-5.20) m/uL Hgb 13.6 (12.0-16.0) gm/dL Hct 40.0 (33.0-51.0) % MCV 87 (80-100) fL MCH 30 (26-34) pg MCHC 34 (32-36) gm/dL RDW Coeff of Dov 11.4 L (11.5-15.5) % Plt Count 296 (140-440) K/uL Neut % (Auto) 84.6 H (42.0-72.0) % Lymph % (Auto) 11.4 L (20-44) % [place] % (Auto) 3.6 (0.0-11.0) % Eos % (Auto) 0.1 (0.0-7.0) % Baso % (Auto) 0.2 (0.0-3.0) % Neut # (Auto) 9.10 H (1.7-7.0) K/uL Lymph # (Auto) 1.20 (0.90-2.90) K/uL [place] # (Auto) 0.40 (0.00-0.90) K/UL Eos # (Auto) 0.01 (0.00-0.50) K/uL Baso # (Auto) 0.02 (0.00-0.30) K/uL Abs Immat Gran (auto) 0.01 (0.00-0.30) K/uL Imm/Tot Granulo (auto) 0.1 % Sodium 131 L (135-149) mmol/L Potassium 3.6 (3.6-5.1) mmol/L Chloride 94 L (96-114) mmol/L Carbon Dioxide 21 (20-32) mmol/L Anion Gap 16 H (7-15) mEq/L BUN 16 (5-24) mg/dL Creatinine 0.2 L (0.5-1.5) mg/dL Estimated GFR 171 ml/min Glucose 78 (60-115) mg/dL Calcium 9.2 (8.4-10.6) mg/dL Total Bilirubin 0.5 (0.1-1.5) mg/dL AST 43 H (12-35) U/L ALT 13 (4-35) U/L Alkaline Phosphatase 176 H (40-150) U/L Total Protein 7.1 (6.0-8.3) g/dL Albumin 3.9 (3.3-5.0) g/dL TSH 1.810 (0.270-4.200) uIU/mL Urine HCG, Qual Negative (Negative) Urine Opiates Screen Negative (Negative) Ur Oxycodone Screen Negative (Negative) Urine Methadone Screen Negative (Negative) Ur Barbiturates Screen Negative (Negative) U Tricyclic Antidepress Negative (Negative) Ur Phencyclidine Scrn Negative (Negative) Ur Amphetamines Screen Negative (Negative) U Methamphetamines Scrn Negative (Negative) U Benzodiazepines Scrn Negative (Negative) Urine Cocaine Screen Negative (Negative) U Marijuana (THC) Screen Negative (Negative) Ur Drug Screen Comment See Note Lab Acknowledgement Cancelled Discharge Plan Discharge Clinical Impression: Anxiety Patient Disposition: Home, Self-Care Condition: Stable Instructions: Panic Disorder (ED), Anxiety (ED) Additional Instructions: Please return to the ER right away if you have any concerns especially worsening anxiety or another episode occurring, or if you just need to talk to someone or would like further evaluation. Please follow the instructions from the online counselor and follow-up with your counselor at school tomorrow. Your Josiah will reach out to you from her school to help establish a plan for care. Prescriptions: No Action bupropion HCl [Wellbutrin XL] 150 mg tablet extended release 24 hr 150 mg PO QAM Qty: 30 0RF escitalopram oxalate [Lexapro] 20 mg tablet 20 mg PO DAILY Qty: 30 0RF Follow Up/Referrals: Martha Clement MD [Primary Care Provider] - Stand Alone Forms: [employer] Workflow Management Info Instructions
--- NOTE | 2023-10-18 21:30 | ED.NURSE ---
D/c instructions given to pt and pt verbalizes understanding. DEC safety plan gone over with pt and pt denies questions. Corrections Cadet asks pt if okay to update pt mother and pt's Josiah. Pt given okay. Updates given to pt's mother and pt's Josiah. Josiah states pt was sent communication to have meeting with class Josiah at 1000 tomorrow morning. Pt aware. Call to [facility] to transport pt back to campus. Pt awaiting ride.
--- NOTE | 2023-10-18 21:32 | ED.NURSE ---
Belongings brought to pt from security.
--- NOTE | 2023-10-18 21:40 | ED.NURSE ---
Pt leaves ER ambulatory and is transported by [facility].
== END 2023-10-18 21:44 | disposition home or self-care (01) ==
PROVIDERS: Emergency Provider Emergency Medicine; PCP Family Medicine
DX: F41.9 Anxiety disorder, unspecified (principal)
CPT/HCPCS: 36415; 80053; 80306; 81025; 84443; 85025; 94761; 96372; 99284; 99291; J1790; J2250